=== PATIENT | female | born 1950 | race Caucasian/White ===

== ENCOUNTER 2019-07-17 12:01 | Inpatient (IN) | payer MEDICARE, OTHER ==
[~2019-07-17] VITALS: Ht 162.6 cm; Wt 93.4 kg
[~2019-07-17 12:01] MED LIST: ARMOUR THYROID15 M1 PO; ARMOUR THYROID60 M1 PO; ATIVAN0.5 MG PO; AUGMENTIN 875875 MG PO; CARAFATE 1 GM TA1 G1 PO; CYMBALTA60 MG PO; DEMEROL50 MG PO; DILAUDID 2 MG TA2 MG PO; DILAUDID8 MG; FENTANYL PA50 MCG/HR TRANSDERM; HYDROCODON-ACE1 EAC7 PO; HYDROCODONE-AP1 EAC6 PO; LIDOCAINE-PRILO30 GM TP; LINZESS290 MCG; LISINOPRIL10 MG PO; MIRALAX255 GM PO; NEURONTIN600 MG PO; OMEPRAZOLE40 MG PO; ONDANSETRON HCL4 M2 PO; OPANA10 MG PO; PHENERGAN 25 MG25 M1 PO; PHENERGAN12.5 M2 RECTAL; PRILOSEC 20 MG20 MG PO; PROAIR HFA8.5 GM INH; PROTONIX40 M1; REGLAN 10 MG TA10 MG PO; SEROQUEL 50 MG50 MG PO; TRAMADOL 50 MG50 MG PO; ZOFRAN ODT4 MG PO
[2019-07-17] MEDS ORDERED: SYNTHROID75 MCG PO (12:09)
[2019-07-17 12:34] LABS: ABSOLUTE BASOPHILS 0.1 thou/uL (0.0-0.2); ABSOLUTE EOSINOPHILS 0.1 thou/uL (0.0-0.7); ABSOLUTE LYMPHOCYTES 1.5 thou/uL (0.8-5.3); ABSOLUTE NEUTROPHILS 11.1 thou/uL (1.6-8.1); EOSINOPHILS 0.7 %; HEMATOCRIT 39.6 % (37.0-47.0); MCH 28.8 pg (26.0-34.0); MCHC 32.8 g/dL (28.0-37.0); MCV 87.7 fL (80.0-100.0); MONOCYTES 7.5 %; MPV 7.1 fl. (7.2-11.1); NUCLEATED RBCS 0 /100WBC; PLATELET COUNT* 368 thou/uL (150-400); POLYS 79.8 %; RBC 4.52 mil/uL (4.20-5.00); RDW-CV 12.3 % (10.5-14.5); WBC 13.9 thou/uL (4.0-11.0)
[2019-07-17 12:41] LABS: ANION GAP 8 mmol/L (7-16); BUN 10 mg/dL (7-18); CALCIUM 8.8 mg/dL (8.5-10.1); CHLORIDE 100 mmol/L (98-107); CO2 27 mmol/L (21-32); CREATININE 0.9 mg/dL (0.6-1.3); GLUCOSE 130 mg/dL (70-99); SODIUM 135 mmol/L (136-145)
[2019-07-17 12:42] LABS: APTT 25.9 Seconds (25.0-31.3); PROTIME 9.8 Seconds (9.20-11.50)
[2019-07-17 12:50] LABS: ALKALINE PHOSPHATASE 148 U/L (46-116); SGOT 15 U/L (15-37); SGPT 12 U/L (30-65); TOTAL BILIRUBIN 0.3 mg/dL (<0.1-1.0); TOTAL PROTEIN 6.9 g/dL (6.4-8.2); TROPONIN-I LEVEL <0.06 ng/mL (<0.06)
[2019-07-17 13:11] LABS: URINE BILIRUBIN NEGATIVE (Negative); URINE BLOOD NEGATIVE (Negative); URINE CLARITY CLEAR; URINE COLOR YELLOW; URINE GLUCOSE-RANDOM NEGATIVE (Negative); URINE KETONES NEGATIVE (Negative); URINE LEUKOCYTES-REFLEX NEGATIVE (Negative); URINE NITRITE-REFLEX NEGATIVE (Negative); URINE PROTEIN NEGATIVE (Negative); URINE UROBILINOGEN 0.2 E.U./dl (0.2-1.0)
[2019-07-17 15:42] VITALS: BP 159/72
--- NOTE | 2019-07-17 15:43 | NUR ---
SEE CONCIOUS SEDATION SHEET FOR PROCEDURE AND POST PROCEDURE VITAL SIGNS.
[2019-07-17 17:19] VITALS: BP 142/67
--- NOTE | 2019-07-17 18:55 | NUR ---
PATIENT ARRIVED TO UNIT AT 1530. ADMISSION HISTORY AND ASSESSMENT COMPLETED AND CHARTED. MOST INFORMATION GAINED FROM PATIENTS , TAMMY. PATIENT IS ALERT AND ORIENTED BY CONFUSED AND FORGETFUL. COMMUNICATION WITH PATIENT IS DIFFICULT PATIENT IS HAVING A HARD TIME FORMING WORDS AND SENTENCES WHEN ASKING FOR THINGS. PATIENTS STATES THAT THIS BEHAVIOR BEGAN IN THE LAST 3 WEEKS TO MONTH AND HE HAS BEEN CONCERNED ABOUT IT. DR LEDEZMA PAGED AND INFORMED, ORDERED A HEAD CT AND CONSULT WITH NEUROLOGY. RIGHT LOWER LEG REDUCED IN THE ED, CASTING AND BULKY DRESSING APPLIED. RIGHT LEG ELEVATED ON PILLOWS THAT PATIENT KEEPS TAKING OUT AND THEN ASKING FOR THEM TO BE PLACED BACK UNDER HER LEG. FLUIDS INFUSED ORDERED. COMPLAINTS OF PAIN MANAGED WITH ORAL AND IV MEDICATIONS. FALL PRECAUTIONS IN PLACE. CALL LIGHT WITHIN REACH. HOURLY ROUNDS COMPLETED. WILL CONTINUE TO MONITOR.
[2019-07-17 21:00] VITALS: BP 133/56
[2019-07-18] VITALS: BP 144/59
[2019-07-18 04:15] VITALS: BP 155/72
--- NOTE | 2019-07-18 06:37 | NUR ---
PATIENT HAS SLEPT WELL THROUGHOUT MOST OF THE NIGHT. VSS ON 3L 02 VIA NASAL CANNULA, ALTHOUGH PULSE HAS BEEN TACHY. PATIENT DOES FREQUENTLY REMOVE NASAL CANNULA AND 02 SATS DECREASE AND PATIENT PLACE BACK ON OXYGEN. SPLINT TO RIGHT LOWER EXTREMITY IS IN PLACE AND EXTREMITY ELEVATED. BAUTISTA TO DEPENDENT DRAINAGE WITH YELLOW URINE OUTPUT. IV IN RIGHT HAND- NS @ 80ML/HR. PATIENT HAS BEEN FORGETFUL AND CONFUSED. FALL PRECAUTIONS IN PLACE AND HOURLY ROUNDS MADE. WILL CONTINUE WITH PLAN OF CARE AND NURSING TO MONITOR
[2019-07-18 07:40] VITALS: BP 140/72
[2019-07-18 08:51] LABS: HEMOGLOBIN 11.3 gm/dL (12.0-15.0); MCHC 32.4 g/dL (28.0-37.0); NUCLEATED RBCS 0 /100WBC; RBC 3.95 mil/uL (4.20-5.00)
[2019-07-18 08:53] LABS: ABSOLUTE BASOPHILS 0.1 thou/uL (0.0-0.2); ABSOLUTE LYMPHOCYTES 1.5 thou/uL (0.8-5.3); ABSOLUTE MONOCYTES 1.1 thou/uL (0.0-1.2); ABSOLUTE NEUTROPHILS 8.5 thou/uL (1.6-8.1); BASOPHILS 0.9 %; EOSINOPHILS 0.3 %; HEMATOCRIT 34.9 % (37.0-47.0); LYMPHOCYTES 13.1 %; MCH 28.6 pg (26.0-34.0); MCV 88.3 fL (80.0-100.0); MPV 6.8 fl. (7.2-11.1); PLATELET COUNT* 322 thou/uL (150-400); POLYS 75.7 %; RDW-CV 12.6 % (10.5-14.5); WBC 11.2 thou/uL (4.0-11.0)
[2019-07-18 09:03] LABS: ALBUMIN 2.7 g/dL (3.4-5.0); CALCIUM 8.5 mg/dL (8.5-10.1); CREATININE 0.8 mg/dL (0.6-1.3); POTASSIUM 4.3 mmol/L (3.5-5.1); TOTAL BILIRUBIN 0.8 mg/dL (<0.1-1.0); TOTAL PROTEIN 6.2 g/dL (6.4-8.2)
--- NOTE | 2019-07-18 15:07 | NUR ---
SPOKE WITH PT.BEFORE LUNCH. SHE WAS ORIENTED TO PERSON AND PLACE. SHE SAID SHE LIVES WITH HER AND SOME ADULT GRANDCHILDREN. SHE SAID THEY WOULD HELP HER AT HOME. AWAITING P.T. NOTES. DISCUSSED WITH HER THAT SHE IS NON WEIGHT BEARING ON RIGHT LEG. IF SHE CANNOT DO THIS, SHE WILL NEED TO GO TO A LONGTERM FACILITY. SHE JUST KEPT TALKING ABOUT HER GRANDKIDS. CM CALLED DAUGHTER AND DPOA,JUAN MEIER. SHE SAID HER MOM NEVER LEAVES THE HOUSE. HER DAD DOES ALL THE BRANDING MACHINE OPERATOR. SHE SAID HER MOM NEVER HAS BEEN VERY ACTIVE BUT SHE WILL USUALLY GET UP IN THE MORNING AND THEN GO SIT IN THE LIVING ROOM. SHE DOES NOT USE ANY DME. SHE WILL HOLD ON TO THE CAREY/FURNITURE. NO HOME O2. SHE IS AWARE MOM WILL NEED SURGERY IN 7-10 DAYS . SHE WOULD LIKE A REFERRAL MADE TO [facility]. CM WILL MAKE REFERRAL AFTER THERAPY NOTE IN.
[2019-07-18 16:00] VITALS: BP 143/70
--- NOTE | 2019-07-18 16:15 | EKG ---
[place] [address] ELECTROCARDIOGRAM REPORT Name: YUNIRE SONI Room: [address] ADM IN M.R.#: [id number] Admission: 07/17/19 Attend Phys: Milka Rojas Discharge: Date of : 52 Report #: [id number] THIS REPORT FOR: //name// [facility] ED Test Date: 2019-07-17 Test Time: 12:27:44 Pat Name: YUNIER SONI Department: Room: [facility] Gender: F Mailroom Coordinator: JEREMÍAS : 1950 Requested By: Vinnie Singh Order Number: [id number] MD: Harshil Saunders Measurements Intervals [place] Rate: 117 P: 71 KS: 160 QRS: 63 QRSD: 81 T: 62 QT: 325 QTc: 454 Interpretive Statements Sinus tachycardia Compared to ECG 03/09/2016 23:18:13 Sinus rate has increased Electronically Signed On 07-18-2019 16:15:11 CDT by Harshil Saunders [email or web address] <ELECTRONICALLY SIGNED> By: Harshil Saunders MD, [facility] 07/18/19 1615 1227 1227 Harshil Saunders MD, FAC /EPI
--- NOTE | 2019-07-18 17:07 | NUR ---
PT REMAINED ALERT AND ORIENTED. PT RESTING IN BED. PAIN MEDS GIVEN ORDERED. ICE PACK TO LEG AND ABD. FALL RISK PRECAUTIONS IN PLACE. HOURLY ROUNDING COMPLETED. WILL CONTINUE TO MONITOR.
[2019-07-18 17:53] LABS: AMP/METHAMP Negative (Negative); BARBITURATES Negative (Negative); BENZODIAZEPINES Negative (Negative); COCAINE Negative (Negative); METHADONE Negative (Negative); OPIATES Negative (Negative); PCP Negative (Negative); THC Negative (Negative)
[2019-07-18 22:10] VITALS: BP 116/54
--- NOTE | 2019-07-19 06:44 | NUR ---
PATIENT HAS RESTED WELL THROUGHOUT THE NIGHT. VSS ON 3L 02 VIA NASAL CANNULA. MEDICATIONS GIVEN ORDERED. PATIENT REMAINS NWB ON RIGHT LOWER EXTREMITY. SPLINT TO RIGHT FOOT IS IN PLACE AND ELEVATED. IV IN RIGHT HAND-SL. FALL PRECAUTIONS IN PLACE AND HOURLY ROUNDS MADE. WILL CONTINUE WITH PLAN OF CARE AND NURSING TO MONITOR.
[2019-07-19 07:10] VITALS: BP 149/69
--- NOTE | 2019-07-19 10:00 | NUR ---
SNF REFERRAL FAXED TO [facility].
--- NOTE | 2019-07-19 13:55 | NUR ---
HOLLY/[facility]RIAN CAME TO VISIT WITH PT. SHE SAID THEY WILL BE ABLE TO ACCEPT HER TO A SKILLED BED ON WEDNESDAY. CM NOTIFIED DAUGHTER ON PHONE.
--- NOTE | 2019-07-19 14:14 | 2DMMODE ---
[place] [address] 2 D/M-MODE ECHOCARDIOGRAM Name: GILLTATIANAYUNIER Room: [facility]- ADM IN .R.#: [id number] Admission: 07/17/19 Attend Phys: Zeus Vicente Discharge: Date of : 52 Date of Service: 07/19/19 1413 Report #: [id number] THIS REPORT FOR: //name// APPROVED REPORT Study performed: 07/19/2019 11:55:43 EXAM: Comprehensive 2D, Doppler, and color-flow Echocardiogram Patient Location: In-Patient Room #: [facility] Status: routine BSA: 1.98 HR: 94 bpm BP: 149/69 mmHg Rhythm: NSR Other Information Study Quality: Good Indications Congestive Heart Failure 2D Dimensions IVSd: 8.50 (7-11mm) LVOT Diam: 20.64 (18-24mm) LVDd: 43.15 mm PWd: 9.50 (7-11mm) LVDs: 32.82 (25-40mm) Aortic Root: 29.95 mm Volumes Left Atrial Volume (Systole) LA ESV Index: 22.80 mL/m2 Aortic Valve AoV Peak Giorgi.: 1.72 m/s AO Peak Gr.: 11.84 mmHg LVOT Max P.51 mmHg AO Mean Gr.: 6.36 mmHg LVOT Mean P.41 mmHg LVOT Max V: 0.94 m/s AO V2 VTI: 29.91 cm LVOT Mean V: 0.54 m/s JAMMIE (VTI): 1.73 cm2 LVOT V1 VTI: 15.45 cm Mitral Valve E/A Ratio: 0.74 MV Decel. Time: 184.40 ms MV E Max Giorgi.: 0.79 m/[place] [address] 2 D/M-MODE ECHOCARDIOGRAM Name: YUNIER SONI Room: [address] IN .R.#: [id number] Admission: 07/17/19 Attend Phys: Zeus Vicente Discharge: Date of : 52 Date of Service: 07/19/19 1413 Report #: [id number] MV PHT: 53.48 ms MVA (PHT): 4.11 cm2 TDI E/Lateral E': 7.18 E/Medial E': 7.18 Medial E' Giorgi.: 0.11 m/s Lateral E' Giorgi.: 0.11 m/s Pulmonary Valve PV Peak Giorgi.: 1.14 m/s PV Peak Gr.: 5.20 mmHg Left Ventricle The left ventricle is normal size. There is inferobasilar hypokinesis. There is normal left ventricular wall thickness. Left ventricular systolic function is mildly decreased. LVEF is 45-50%. Grade I - abnormal relaxation pattern. Right Ventricle The right ventricle is normal size. The right ventricular systolic function is normal. Atria The left atrium size is normal. The right atrium size is normal. Aortic Valve Mild aortic valve sclerosis. No aortic regurgitation is present. There is no aortic valvular stenosis. Mitral Valve The mitral valve is normal in structure. Trace mitral regurgitation. No evidence of mitral valve stenosis. Tricuspid Valve The tricuspid valve is normal in structure. Trace tricuspid regurgitation. Unable to assess PA pressure. Pulmonic Valve The pulmonary valve is normal in structure. There is no pulmonic valvular regurgitation. Great Vessels The aortic root is normal in size. IVC is normal in size and collapses >50% with inspiration[place] [address] 2 D/M-MODE ECHOCARDIOGRAM Name: YUNIER SONI Room: [address] IN [facility].#: [id number] Admission: 07/17/19 Attend Phys: Zeus Vicente Discharge: Date of : 52 Date of Service: 07/19/19 1413 Report #: [id number] There is no pericardial effusion. <Conclusion> The left ventricle is normal size. There is normal left ventricular wall thickness. Left ventricular systolic function is mildly decreased. LVEF is 45-50%. Grade I - abnormal relaxation pattern. The right ventricle is normal size. The left atrium size is normal. Mild aortic valve sclerosis. No aortic regurgitation is present. There is no aortic valvular stenosis. The mitral valve is normal in structure. The tricuspid valve is normal in structure. IVC is normal in size and collapses >50% with inspiration. There is no pericardial effusion. There is inferobasilar hypokinesis. <ELECTRONICALLY SIGNED> By: Harshil Saunders MD, FACC 07/19/19 1413 141 1413 Harshil Saunders MD, FACC /INF
[2019-07-19 16:00] VITALS: BP 143/76
--- NOTE | 2019-07-19 18:25 | NUR ---
PT REMAINED ALERT AND ORIENTED, FORGETFUL. PT ON 3 LITERS O2. PT C/O PAIN, MEDS GIVEN ORDERED. STOOL SOFTENER ORDERED. FALL RISK PRECAUTIONS IN PLACE. HOURLY ROUNDING COMPLETED. WILL CONTINUE TO MONITOR.
[2019-07-20] VITALS: BP 129/55
--- NOTE | 2019-07-20 05:47 | NUR ---
PT SLEPT ON AND OFF OVERNIGHT. CO RLQ ABD PAIN AND R LEG PAIN AT TIMES OVERNIGHT, PO PAIN MEDS GIVEN NEEDED WITH GOOD RESULT. DANIEL WRAP SPLINT INTACT TO RLE, TOES PINK AND WARM. O2 2L NC. BAUTISTA DRAINING YELLOW URINE. RLE ELEVATED ON PILLOW. PT ASSISTED TO TURN AND REPOSITION Q2 HOURS AND PRN OVERNIGHT FOR SKIN CARE AND COMFORT. PT DISCONTINUE IV OVERNIGHT, NO IV ACCESS RESTORED PT IS ON PO MEDS AND ANTICIPATING DISCHARGE TO FACILITY TODAY. PT AO, FORGETFUL, SLOW TO SPEAK AND TROUBLE WITH WORD FINDING AT TIMES. NEURO AND GI CONSULTS HAVE SEEN PT AND RECOMMEND OUTPT WORKUP PER NOTES. NWB TO RLE. CALL LITE IN EASY REACH, BED ALARM ON FOR SAFETY.
[2019-07-20 08:30] VITALS: BP 152/78
--- NOTE | 2019-07-20 13:34 | NUR ---
PT.HAS DISCHARGE ORDERS FOR TODAY. NOTIFIED [facility]. SHE WILL SET UP [facility]SP[facility] FOR 15-0. NOTIFIED JUAN/PT.'S DAUGHTER OF DISCHARGE TIME. SHE SAID SHE WILL LET HER DAD KNOW OF DISCHARGE. ALSO TOLD HER I LEFT INFORMATION WITH PT.ON PCP PRACTICES THAT [facility], SO PT.CAN GET A NEW PCP SET UP. WILL SEND WITH HER BELONGINGS TO [facility]. CHART COPIED TO GO [facility] PT. BALDEMAR HAMMOND WILL CALL REPORT. PT.INFORMED OF TRANSPORT TIME.
[2019-07-20 15:22] VITALS: BP 129/55
[2019-07-20] MEDS ORDERED: ASPIRIN325 PO (15:35)
[2019-07-20] MEDS ORDERED: ROXICODONE5 M2 PO (15:37)
[2019-07-20 16:00] VITALS: BP 107/25
--- NOTE | 2019-07-20 16:00 | NUR ---
DISCHARGE TO [facility]. PATIENT ASST W/ DRSG. BELONGINGS GATHERED AND GIVEN TO PRECISION INSTRUMENT AND TOOL MAKER. ASST TO WC USING FWW AND GAIT BELT. PATIENT NWB TO RLE. DRSG TO RLE CDI. PATIENT C/O RT GROIN PAIN, ICE TO AREA. O2 RA. PAPERWORK WITH PRECISION INSTRUMENT AND TOOL MAKER AT TIME OF DISCHARGE. REPORT CALLED TO [facility]. NO ACUTE DISTRESS NOTED. PATIENT ALERT AND ORIENTED.
--- NOTE | 2019-07-22 16:06 | CON ---
[address] [address] CONSULTATION Name: YUNIER SONI Room: [address] IN M.R.#: [id number] Admission: 07/17/19 Attend Phys: Milka Rojas Discharge: 07/20/19 Date of : 52 Report #: [id number] THIS REPORT FOR: //name// CC: Woo Vicente DICTATED BY: Sandy Ruiz [facility] DATE OF SERVICE: 07/19/2019 Please note at the time of this dictation, the patient was seen and physically examined by myself. REASON FOR CONSULTATION: Dilated CBD. HISTORY OF PRESENT ILLNESS: This is a 69-year-old female who presented to the Emergency Room with right foot and ankle pain on the day of admission after she tripped off the edge of her stairs and injured her right foot. She was noted to have a right ankle fracture at that time. During her hospital stay, she was complaining of a little bit of left flank pain and so a CT was ordered for that reason. It was noted on the CT that she had the common bile duct slightly dilated and was slightly increased in size from back in 2015. Otherwise, the CT scan was essentially negative for any other GI abnormalities. Back in 2015, the patient had an extensive workup regarding her CBD dilatation including EGD, colonoscopy, EUS, ERCP, gastric emptying test and all were essentially negative, and when she was last seen in February by Dr. Pedraza he said that she probably had more functional bowel issues. The patient did have a cholecystectomy back in 2007 that was related to acalculous cholecystitis and not choledocholithiasis. ALLERGIES: STEROIDS, CODEINE, ACETAMINOPHEN AND REMERON. MEDICATIONS: From home is Synthroid. PAST MEDICAL HISTORY: Hypothyroid, history of an ulcer, history of pneumonia. PAST SURGICAL HISTORY: Back surgery, thyroid surgery, hysterectomy, appendectomy, tonsillectomy, cholecystectomy. FAMILY HISTORY: Negative for any GI or female cancers. SOCIAL HISTORY: The patient smokes 3 packs per day and has for 50+ years. Denies any alcohol or illegal drug use. REVIEW OF SYSTEMS: Twelve-point review of systems is essentially negative except what is [place] [address] CONSULTATION Name: YUNIER SONI Room: [address] IN [facility].#: [id number] Admission: 07/17/19 Attend Phys: Milka Rojas Discharge: 07/20/19 Date of : 52 Report #: [id number] PHYSICAL EXAMINATION: VITAL SIGNS: Temperature 36.8, pulse 114, respirations 18, blood pressure 149/69. HEART: Regular rate and rhythm and tachycardic. LUNGS: Diminished, but clear. ABDOMEN: Soft, positive bowel sounds in all 4 quadrants with no masses or tenderness noted. She is complaining of some right groin pain and has an ice pack to that. EXTREMITIES: Right ankle pain and wrapped. LABORATORY DATA: Hemoglobin is 11.3, white count is 11.2, platelets 322. GFR is 71. LFTs are all completely normal. Again, CT showed a slightly dilated common bile duct, but no other abnormalities, that has been persistent since 2016. IMPRESSION: 1. Dilated common bile duct, which has been persistent since 2016. 2. Fractured right ankle. 3. Pain medications. Routine secondary to ankle fracture. PLAN: 1. No further workup regarding her dilated CBD. She had a complete and extensive workup in 2016 for this and this was all negative. 2. We will add senna b.i.d. to prevent constipation secondary to the pain medicines. 3. We will sign off and be available as needed during this hospitalization. Thank you for allowing us to participate in this patient's care. Please do not hesitate to call with any questions in regard to this consult. <ELECTRONICALLY SIGNED> By: Efraín Benz DO 07/22/19 1606 1109 1930Efraín Benz DO /nt
== END 2019-07-20 16:00 | DRG 542 ==
LOC: M.ERS 12:01 → M.ORTHSURG 13:34 → M.TBA-ER 13:34 → M.ORTHSURG 15:30
PROVIDERS: Family Medicine; Internal Medicine; ADMIT Internal Medicine
PROC: 2W3SX1Z Immobilization of Right Foot using Splint (ICD-10-PCS; principal; 2019-07-17)
PROC: 0QSJXZZ Reposition Right Fibula, External Approach (ICD-10-PCS; principal; 2019-07-17)
DX: M80.071A Age-related osteoporosis with current pathological fracture, right ankle and foot, initial encounter for fracture (principal); G93.41 Metabolic encephalopathy; J98.11 Atelectasis; E44.1 Mild protein-calorie malnutrition; S82.851A Displaced trimalleolar fracture of right lower leg, initial encounter for closed fracture; E03.9 Hypothyroidism, unspecified; F17.210 Nicotine dependence, cigarettes, uncomplicated; R00.0 Tachycardia, unspecified; R09.02 Hypoxemia; Z90.49 Acquired absence of other specified parts of digestive tract; Z90.710 Acquired absence of both cervix and uterus; Z88.6 Allergy status to analgesic agent; Z88.8 Allergy status to other drugs, medicaments and biological substances; Z68.35 Body mass index [BMI] 35.0-35.9, adult; W18.39XA Other fall on same level, initial encounter; Y93.89 Activity, other specified; Y92.89 Other specified places as the place of occurrence of the external cause; Y99.8 Other external cause status

== ENCOUNTER 2019-07-26 10:56 | Inpatient (IN) | payer MEDICARE, OTHER ==
[~2019-07-26] VITALS: Ht 160 cm; Wt 90.7 kg
--- NOTE | ~2019-07-26 | OP ---
[facility] [address] [place] [address] OPERATIVE REPORT Name: YUNIER SONI Room: [address] IN M.R.#: [id number] Admission: 07/26/19 Attend Phys: Milka Rojas Discharge: Date of : 52 Report #: [id number] THIS REPORT FOR: //name// CC: Woo Vicente DATE OF SERVICE: 07/26/2019 PREOPERATIVE DIAGNOSIS: Right displaced trimalleolar ankle fracture. POSTOPERATIVE DIAGNOSIS: Right displaced trimalleolar ankle fracture. SURGEON: Robert Glasgow DO BIOLOGY LABORATORY ASSISTANT: Bernard Gordon DO OPERATION PERFORMED: Right ankle closed reduction with external fixation. ANESTHESIA: General. ESTIMATED BLOOD LOSS: 10 mL. SPECIMENS REMOVED: None. COMPLICATIONS: None. DRAINS: None. COMMENTS: Discharged from PACU to Med/Surg floor. INDICATIONS FOR PROCEDURE: The patient is a pleasant 69-year-old female who was seen in the outpatient orthopedic clinic after she fell and sustained a right trimalleolar ankle fracture. She was noted to have significant swelling and ecchymosis and pressure on the right skin. A closed reduction attempt was reperformed in the outpatient office setting, which the patient tolerated well. I did release some of the tenting of the skin and then some of the amount of displacement; however, she did continue to be displaced with noticeable talar tilt. It was recommended that she undergo right ankle closed reduction with external fixation to allow for soft tissue swelling to resolve prior to needing external fixation on delayed fashion. Therefore, the risks, benefits, treatment options, alternatives, and indications were discussed with the patient the risks include but not limited to damage to surrounding neurovascular structures, continued pain, continued bleeding, wound infection, pin site tract infection, need for repeat surgery, need for washout and need for prolonged antibiotics and complications there of acute renal failure, [place]ostrid[place] [address] OPERATIVE REPORT Name: YUNIER SONI Room: [address] IN [facility].#: [id number] Admission: 07/26/19 Attend Phys: Milka Rojas Discharge: Date of : 52 Report #: [id number] well as iatrogenic fracture. The patient assumed the risks and wished to proceed with surgery. DESCRIPTION OF PROCEDURE: The patient was seen in the preoperative holding area where consent was obtained and signed, and the right lower extremity was then marked and initialed. The patient was transferred back to the operative suite and placed supine on the operating room table. She was given the benefit of general endotracheal anesthetic and then a well-padded tourniquet was applied at the right upper thigh. All bony prominences were then well padded and the patient was secured to the table with a belt and restraint appropriately. The right lower extremity was elevated on a foam ramp. Right lower extremity was then sterilely prepped with a Hibiclens scrubbed for 10 minutes followed by alcohol rinse and ChloraPrep x 2. Surgery began with identification of appropriate starting point above where any ankle hardware would be placed for definitive ORIF fixation. Appropriate starting point was identified on the C-arm images and then, a 15-blade scalpel was used to incise skin and subcutaneous tissues to the level of bone. Next, the appropriate drill guide was inserted. We marked out both distal and proximal holes. When the proximal hole was identified, a donis was made with a guide and the skin was incised with a 15 blade scalpel through skin and subcutaneous tissues. A proximal third of the first distal tibial pin was placed just medial to the tibial crest in appropriate angled trajectory. Visualizing C-arm on AP and lateral images to be in appropriate position. Next, attention was directed to the proximal tibial pin and this was placed just medial to the tibial crest in appropriate trajectory just medial to the tibial crest and visualized on C-arm on AP and lateral images. Next, attention was directed to the distal aspect of the ankle and the calcaneus pin was identified in appropriate starting position on AP and lateral images of the C-arm. Therefore, a skin knife was used to incise skin and subcutaneous tissues on the medial aspect and then hemostat was used in a spreading fashion to spread down to the level of the bone until bone was free of any soft tissue. Next, the calcaneal pin was then inserted in a medial to lateral direction with appropriate trajectory that was confirmed on AP and lateral images of the C-arm. This was driven to an appropriate length and position. Next, external fixation bars and appropriate clips were placed onto the bone pins and secured into position with enough room for closed reduction maneuvers being performed. Closed reduction maneuver was then subsequently performed with traction and varus angulation and supination. This allowed for appropriate reduction of the fibula as well as maintenance of the talus within the ankle mortise on AP and lateral images visualized under C-arm. The appropriate bars were then locked into position. They were then confirmed to be in an appropriate reduction on both AP and lateral images of C-arm. Next, the kickstand was then attached to the calcaneal pin and secured into position. Wounds were then thoroughly irrigated and then dressings of Xeroform, 4 x 4s, Kerlix and silk tape were applied. Anesthesia was reversed. The patient was transferred back to PACU in normal stable condition. Then, do the post-recovery evaluation, the patient was seen following completion of the surgery. [facility] [address] [place] [address] OPERATIVE REPORT Name: YUNIER SONI Room: [address] IN M.R.#: [id number] Admission: 07/26/19 Attend Phys: Milka Rojas Discharge: Date of : 52 Report #: [id number] Discussion was held with the family about the results of the surgery and they were very pleased with my surgical outcomes. I discussed with them the patient's need to be evaluated overnight as well as need for physical therapy and occupational therapy as well as adequate pain control. Following this, we discussed for the followup appointment with discussion of possible open reduction and internal fixation in potentially 7-10 days with soft tissue guiding or treatment at this point. I stated the patient will be nonweightbearing on the right lower extremity. We then subsequently evaluated the patient in the PACU and she was determined to have maintenance of sensation in the bilateral lower extremities as well as upper extremities and removing them appropriately except for the right lower extremity at the ankle secondary to the external fixation. She had maintenance of sensation in the right lower extremity and continued to have loss of sensation on the dorsal aspect, which was present prior to surgery. The patient was able to wiggle her toes. I discussed all the above-mentioned orders and follow up with the patient. She thanked me for my time. I personally gave her and her family my cell phone number to call at any time. All concerning signs were discussed with the patient. Dr. Glasgow was present for all critical aspects of the case. By: [id number] 1942Jathor Glasgow, /nt
[~2019-07-26 10:56] MED LIST changes: +ASPIRIN325 PO; +ROXICODONE5 M2 PO; +SYNTHROID75 MCG PO
[2019-07-26 13:52] VITALS: BP 152/76
[2019-07-26 18:10] VITALS: BP 142/58
--- NOTE | 2019-07-26 18:47 | NUR ---
PATIENT ARRIVED TO UNIT AT 1700. ALERT AND AWAKE. VSS ON 3 LITERS. NO COMPLAINTS OF PAIN, NAUSEA, OR SOA. PATIENT IS NOT SPEAKING BUT USING A PEN AND PAPER TO COMMUNICATE. FLUIDS INFUSED ORDERED. PATIENT ORDERS SAY UP WITH ASSIST. NON WEIGHT BEARING TO RIGHT LOWER EXTREMITY. EX FIX IN PLACE ON LOWER RIGHT EXTREMITY. WEIGHT BEARING TOLERATED ON LEFT LOWER EXTREMITY. ICE PACKS IN PLACE ON RLE. FALL PRECAUTIONS IN PLACE. CALL LIGHT WITHIN REACH. HOURLY ROUNDS COMPLETED. WILL CONTINUE TO MONITOR.
[2019-07-26 20:00] VITALS: BP 101/62
[2019-07-27] VITALS: BP 129/68
[2019-07-27 03:51] LABS: HEMATOCRIT 31.5 % (37.0-47.0); MCH 28.5 pg (26.0-34.0); MCHC 31.9 g/dL (28.0-37.0); MCV 89.4 fL (80.0-100.0); MPV 7.2 fl. (7.2-11.1); NUCLEATED RBCS 0 /100WBC; PLATELET COUNT* 457 thou/uL (150-400); RBC 3.53 mil/uL (4.20-5.00); RDW-CV 13.4 % (10.5-14.5)
[2019-07-27 04:00] VITALS: BP 121/58
[2019-07-27 04:37] LABS: CALCIUM 8.1 mg/dL (8.5-10.1); CREATININE 0.8 mg/dL (0.6-1.3); POTASSIUM 4.7 mmol/L (3.5-5.1)
--- NOTE | 2019-07-27 05:24 | NUR ---
PATIENT SLEPT MOST OF THE NIGHT. IV FLUIDS CONTINUE TO INFUSE ORDERED. PATIENT IS EASY TO UNDERSTAND AT TIMES BUT SOMETIMES IS HARD TO UNDERSTAND. PATIENT WAS GIVEN PAIN MEDICINE TWICE WITH GOOD RELIEF. EXTERNAL FIXATION REMAINS IN PLACE TO RIGHT ANKLE. PATIENT HAS BEEN INCONTINENT OF URINE. WILL CONTINUE TO MONITOR.
[2019-07-27 05:35] LABS: ABSOLUTE LYMPHOCYTES 0.5 thou/uL (0.8-5.3); ABSOLUTE MONOCYTES 0.7 thou/uL (0.0-1.2); ABSOLUTE NEUTROPHILS 10.8 thou/uL (1.6-8.1); ANISOCYTOSIS 1+; HYPOCHROMASIA 1+; PLATELET ESTIMATE INCREASED; POIKILOCYTOSIS 1+
[2019-07-27 07:40] VITALS: BP 136/53
[2019-07-27 15:42] VITALS: BP 153/62
--- NOTE | 2019-07-27 17:16 | NUR ---
ASSUMED CARE OF PATIENT AT APPROX 0730. ALERT AND ORIENTED X2-3. ASSESSMENT COMPLETED AND CHARTED. VSS ON 3 LITERS 02. PATIENT HAVING DIFFICULTY COMMINICATION AT TIMES, PROVIDED PAPER AND PEN TO WRITE ON. PATIENT HAS A LOOSE COUGH BUT LUNG SOUNDS ARE DIMINISHED WITH EXPIRATORY WHEEZES ON THE LEDT SIDE THAT CLEAR WITH COUGH. PAIN MANAGED WITH OXY IR. FLUIDS AND ANTIBIOTICS INFUSED ORDERED. EX FIXATOR ON RIGHT LOWER EXTREMITY IN PLACE, SOME BLOODY DRAINAGE ON DRESSING OVER HEEL FROM PATIENT MOVING EXTREMITY AROUND IN BED. USING BEDPAN FOR VOIDING. NON WEIGHT BEARING STATUS MAINTAINED ON RLE. FALL PRECAUTIONS IN PLACE. CALL LIGHT WITHIN REACH. HOURLY ROUNDS COMPLETED. WILL CONTINUE TO MONITOR.
[2019-07-27 20:49] VITALS: BP 130/85
[2019-07-28 03:35] VITALS: BP 138/59
[2019-07-28 04:35] LABS: ABSOLUTE BASOPHILS 0.1 thou/uL (0.0-0.2); ABSOLUTE EOSINOPHILS 0.5 thou/uL (0.0-0.7); ABSOLUTE LYMPHOCYTES 1.1 thou/uL (0.8-5.3); ABSOLUTE MONOCYTES 0.7 thou/uL (0.0-1.2); ABSOLUTE NEUTROPHILS 4.3 thou/uL (1.6-8.1); BASOPHILS 0.9 %; HEMATOCRIT 31.9 % (37.0-47.0); HEMOGLOBIN 10.3 gm/dL (12.0-15.0); LYMPHOCYTES 16.8 %; MCH 28.5 pg (26.0-34.0); MCHC 32.4 g/dL (28.0-37.0); MONOCYTES 10.5 %; MPV 7.1 fl. (7.2-11.1); NUCLEATED RBCS 0 /100WBC; PLATELET COUNT* 461 thou/uL (150-400); POLYS 63.8 %; RBC 3.62 mil/uL (4.20-5.00); RDW-CV 13.5 % (10.5-14.5); WBC 6.7 thou/uL (4.0-11.0)
[2019-07-28 04:40] LABS: CALCIUM 8.2 mg/dL (8.5-10.1); CREATININE 0.8 mg/dL (0.6-1.3); POTASSIUM 3.8 mmol/L (3.5-5.1)
--- NOTE | 2019-07-28 05:14 | NUR ---
STILL NOT COMMUNICATING WELL BUT HAS BEEN ABLE TO REPORT HER PAIN. SHE DID RECEIVE 10MG OXYCODONE FOR REPORTING 7/10 PAIN IN RIGHT ANKLE/FOOT. SHE WAS ABLE TO SLEEP THROUGH THE NIGHT. STILL HAS BAUTISTA. GAUZE HAS SOME BLOOD LEAKAGE BUT NOT SAUTURATING ENOUGH TO UNWRAP. NO WB ON RLE ACTIVITY TO CHAIR FOR MEALS. COUGHT STILL LOOSE AND LUNG SOUNDS DIMINISHED. PLANS ARE THE D/C TO SNF. WILL CONTINUE TO MONITOR.
--- NOTE | 2019-07-28 11:13 | NUR ---
DASHAWN met with pt and discussed possibility of pt to dc back to SNF at [facility] today. Pt said she did not feel that she was quite ready but explained that even though she wants to dc home, she would agree to return to [facility] SNF. DASHAWN called pt and discussed dc plan and pt said he was in agreement with plan for pt to dc to [facility] SNF (even though pt had expressed he wasn't sure about pt returning to [facility], pt said he okay with [facility] after all). DASHAWN called and spoke with Marycruz in admissions at [facility] and faxed referral info. DC orders/med list to be faxed to [facility] at dc. ph [phone] fax [phone]
--- NOTE | 2019-07-28 15:30 | NUR ---
ASSESSMENT COMPLETE. PT HAS APHASIA, PHYSICIAN AWARE. PT GIVEN PRN PAIN MEDICATIONS NEEDED. PT IS ON 2L PER NC WITH ADEQUATE SATS, VSS. PT DENIES N/V, TOLERATING MEALS. PT INCONT AT TIMES. Q2 TURN. SEE ASSESSMENT AND VITALS FOR OTHER DETAILS. CALL LIGHT WITHIN REACH. WILL CONTINUE PLAN OF CARE
[2019-07-28 16:00] VITALS: BP 132/65
--- NOTE | 2019-07-28 16:40 | NUR ---
PT. AND DAUGHTER,JUAN, WOULD LIKE FOR PT.TO DO A DPOA. GAVE DOCUMENT AND EXPLAINED. PT.IS ALERT AND ORIENTED. SHE COULD NOT NAME PRESIDENT BUT KNEW MONTH,YEAR, SEASON AND WHAT TOMORROW IS. COPY PLACED ON CHART AND COPIES AND ORIGINAL GIVEN TO PT.
[2019-07-28 20:00] VITALS: BP 140/64
[2019-07-29 00:19] VITALS: BP 142/80
[2019-07-29 03:57] VITALS: BP 137/67
[2019-07-29 04:31] LABS: HEMATOCRIT 32.4 % (37.0-47.0); HEMOGLOBIN 10.4 gm/dL (12.0-15.0); MCH 28.3 pg (26.0-34.0); MCV 88.5 fL (80.0-100.0); MPV 7.4 fl. (7.2-11.1); RBC 3.66 mil/uL (4.20-5.00); RDW-CV 13.2 % (10.5-14.5)
[2019-07-29 04:42] LABS: CALCIUM 8.2 mg/dL (8.5-10.1); CREATININE 0.8 mg/dL (0.6-1.3); POTASSIUM 4.3 mmol/L (3.5-5.1)
--- NOTE | 2019-07-29 05:24 | NUR ---
PATIENT SLEPT OFF AND ON DURING THIS SHIFT. PT C/O RT FOOT PAIN AND PAIN MEDICATIONS GIVEN X3. PT ABLE TO SLEEP AFTERWARDS. PT TURNED Q2H PER PROTOCAL. PT WITH SALINE LOCK IN LT HAND. PT IS ON 2LITERS PER NASAL CANNULA. PT IN CONTINENT OF URINE. PT WITH APHASIA BUT ABLE TO MAKE NEEDS KNOWN. FREQUENTLY USED ITEMS AND CALL LIGHT WITHIN REACH. SIDERAILS UPX3 AND BED ALARM ON. WILL CONTINUE TO MONITOR.
[2019-07-29 08:30] VITALS: BP 157/77
--- NOTE | 2019-07-29 10:47 | NUR ---
[facility] is able to accept Pt back over the weekend, if medically stable to dc. Contact Marycruz at [phone], to arrange discharge. Fax number is [phone]. Nurse report number is [phone]
--- NOTE | 2019-07-29 13:16 | NUR ---
Pt discharging to [facility] skilled. Faxed dc orders. Chart copied. Nurse report number is [phone]. Updated Pt's dtr.
[2019-07-29] MEDS ORDERED: ENOXAPARIN40 MG/0.1 SUBQ (14:27)
[2019-07-29] MEDS ORDERED: DOK PLUS TABLE1 EACH PO (14:27)
[2019-07-29] MEDS ORDERED: THERA M PLUS T1 EAC2 PO (14:27)
[2019-07-29] MEDS ORDERED: OXYCODONE HCL 55 MG PO (14:27)
[2019-07-29] MEDS ORDERED: SYNTHROID50 MCG PO (14:27)
[2019-07-29] MEDS ORDERED: ADULT LOW DOSE81 MG PO (14:27)
[2019-07-29] MEDS ORDERED: VITAMIN B-12500 MCG PO (14:27)
[2019-07-29] MEDS ORDERED: PROTONIX40 M1 PO (14:38)
[2019-07-29 16:15] VITALS: BP 157/77
[2019-07-29 18:50] VITALS: BP 157/77
--- NOTE | 2019-07-29 19:06 | NUR ---
PATIENT TRANSPORTED VIA WHEELCHAIR VAN AT 1855. NO SIGNS OF DISTRESS OBSERVED. IV REMOVED. ALL SAFETY MEASURES MAINTAINED. PATIENT TURNING AND REPOSITIONING Q2 THROUGHOUT SHIFT. REPORT CALLED TO FACILITY AT 5637.
== END 2019-07-29 19:23 | DRG 492 ==
LOC: M.TBA 10:56 → M.ORTHSURG 10:56 → M.SUR 14:57 → EDSTATUS 15:09 → M.ORTHSURG 15:11
PROVIDERS: Family Medicine; ADMIT Internal Medicine
PROC: 0QSG35Z Reposition Right Tibia with External Fixation Device, Percutaneous Approach (ICD-10-PCS; principal; 2019-07-26)
DX: S82.851A Displaced trimalleolar fracture of right lower leg, initial encounter for closed fracture (principal); J96.00 Acute respiratory failure, unspecified whether with hypoxia or hypercapnia; R47.01 Aphasia; J98.11 Atelectasis; E03.9 Hypothyroidism, unspecified; G47.33 Obstructive sleep apnea (adult) (pediatric); R10.9 Unspecified abdominal pain; G89.29 Other chronic pain; Z88.6 Allergy status to analgesic agent; Z88.8 Allergy status to other drugs, medicaments and biological substances; Z90.49 Acquired absence of other specified parts of digestive tract; Z90.710 Acquired absence of both cervix and uterus; W18.39XA Other fall on same level, initial encounter; Y93.89 Activity, other specified; Y92.89 Other specified places as the place of occurrence of the external cause; Y99.8 Other external cause status

== ENCOUNTER 2019-08-01 19:17 | Inpatient (IN) | payer MEDICARE, OTHER ==
[~2019-08-01] VITALS: Ht 160 cm; Wt 90.7 kg
[~2019-08-01 19:17] MED LIST changes: +ADULT LOW DOSE81 MG PO; +DOK PLUS TABLE1 EACH PO; +ENOXAPARIN40 MG/0.1 SUBQ; +OXYCODONE HCL 55 MG PO; +PROTONIX40 M1 PO; +SYNTHROID50 MCG PO; +THERA M PLUS T1 EAC2 PO; +VITAMIN B-12500 MCG PO
[2019-08-01 19:20] VITALS: BP 214/97
[2019-08-01] MEDS ORDERED: MIRALAX17 GM PO (19:28)
[2019-08-01] MEDS ORDERED: MILK OF MA2400 MG/11 PO (19:28)
[2019-08-01] MEDS ORDERED: BAZA CR.1 E1 (19:29)
[2019-08-01] MEDS ORDERED: DULCOLAX5 MG PO (19:30)
[2019-08-01 19:41] LABS: URINE BILIRUBIN NEGATIVE (Negative); URINE BLOOD NEGATIVE (Negative); URINE CLARITY CLEAR; URINE COLOR STRAW; URINE GLUCOSE-RANDOM NEGATIVE (Negative); URINE KETONES NEGATIVE (Negative); URINE LEUKOCYTES-REFLEX NEGATIVE (Negative); URINE NITRITE-REFLEX NEGATIVE (Negative); URINE PROTEIN NEGATIVE (Negative); URINE UROBILINOGEN 0.2 E.U./dl (0.2-1.0)
[2019-08-01 19:54] LABS: ABSOLUTE BASOPHILS 0.1 thou/uL (0.0-0.2); ABSOLUTE EOSINOPHILS 0.2 thou/uL (0.0-0.7); ABSOLUTE LYMPHOCYTES 1.5 thou/uL (0.8-5.3); ABSOLUTE MONOCYTES 0.9 thou/uL (0.0-1.2); ABSOLUTE NEUTROPHILS 6.4 thou/uL (1.6-8.1); BASOPHILS 0.7 %; EOSINOPHILS 2.5 %; HEMATOCRIT 35.1 % (37.0-47.0); HEMOGLOBIN 11.5 gm/dL (12.0-15.0); LYMPHOCYTES 16.1 %; MCH 28.4 pg (26.0-34.0); MCHC 32.8 g/dL (28.0-37.0); MCV 86.6 fL (80.0-100.0); MONOCYTES 9.7 %; MPV 7.2 fl. (7.2-11.1); NUCLEATED RBCS 0 /100WBC; PLATELET COUNT* 541 thou/uL (150-400); RBC 4.06 mil/uL (4.20-5.00); RDW-CV 13.8 % (10.5-14.5)
[2019-08-01 19:58] LABS: PROTIME 10.1 Seconds (9.20-11.50)
[2019-08-01 19:59] LABS: ANION GAP 7 mmol/L (7-16); BUN 4 mg/dL (7-18); CALCIUM 8.6 mg/dL (8.5-10.1); CHLORIDE 96 mmol/L (98-107); CO2 31 mmol/L (21-32); CREATININE 0.8 mg/dL (0.6-1.3); GLUCOSE 93 mg/dL (70-99); POTASSIUM 3.5 mmol/L (3.5-5.1); SODIUM 134 mmol/L (136-145)
[2019-08-01 20:09] LABS: ALKALINE PHOSPHATASE 104 U/L (46-116); LIPASE 63 U/L (73-393); NT-PRO BRAIN NAT PEPTIDE 802 pg/mL (<300); SGOT 22 U/L (15-37); SGPT 14 U/L (30-65); TOTAL BILIRUBIN 0.5 mg/dL (<0.1-1.0); TOTAL PROTEIN 6.6 g/dL (6.4-8.2); TROPONIN-I LEVEL <0.06 ng/mL (<0.06)
[2019-08-01 20:32] LABS: BE 3.4 mmol/L (-2 to +3); PCO2 45.4 mmHg (35.0-45.0); PO2 115.7 mmHg (75.0-100.0); pH 7.414 (7.340-7.450)
[2019-08-01 22:42] VITALS: BP 179/79
[2019-08-01 22:45] VITALS: BP 158/98
[2019-08-02] MEDS ORDERED: VITAMIN B-12500 MCG PO (03:05)
[2019-08-02 04:00] VITALS: BP 158/53
--- NOTE | 2019-08-02 05:04 | NUR ---
PT RECIEVED FROM ED IN ROOM 200. SAT MAINTAINED IN 4L NC. SPEECH DIFFICULT TO UNDERSTAND AT TIMES. FOLLOWS COMMANDS PROPERLY. C/O PAIN, MEDICATION GIVEN PER EMAR. HOURLY ROUNDING DONE FOR PT SAFETY.
[2019-08-02 07:00] VITALS: BP 145/52
--- NOTE | 2019-08-02 10:15 | EKG ---
[place] [address] ELECTROCARDIOGRAM REPORT Name: YUNIER SONI Room: [address] ADM IN M.R.#: [id number] Admission: 08/01/19 Attend Phys: Nigel Ocampo, Discharge: Date of : 52 Report #: [id number] THIS REPORT FOR: //name// [facility] ED Test Date: 2019-08-01 Test Time: 19:41:08 Pat Name: YUNIER SONI Department: Room: [facility] Gender: F Filling Hand: ANIBAL : 1950 Requested By: Ainsley Montenegro Order Number: [id number] MD: Woo Silva Measurements Intervals Ralph Rate: 100 P: 86 FL: 141 QRS: 71 QRSD: 85 T: 71 QT: 374 QTc: 483 Interpretive Statements Sinus tachycardia Compared to ECG 07/17/2019 12:27:44 No significant changes Electronically Signed On 08-02-2019 10:15:25 CDT by Woo Silva [email or web address] <ELECTRONICALLY SIGNED> By: Woo Silva MD, [facility] 08/02/19 1015 40 40 Woo Silva MD, FACC /EPI
[2019-08-02 12:00] VITALS: BP 150/58
--- NOTE | 2019-08-02 13:41 | NUR ---
Pt was discharged on 07/29 to [facility], plans to return at dc. CM spoke with Marycruz at [facility], they are able to accept Pt back. Pt states that she is sleepy today and asked that CM contact her dtr. CM left for Pt's dtr, awaiting call back.
[2019-08-02 16:00] VITALS: BP 148/62
[2019-08-02 20:20] VITALS: BP 135/60
[2019-08-03 00:30] VITALS: BP 141/54
[2019-08-03 04:30] VITALS: BP 138/70
--- NOTE | 2019-08-03 04:57 | NUR ---
ASSUMED CARE OF PT AT 1900. PT IS ALERT AND ORIENTED. VSS. PERRLA. PT REPORTS ONGOING PAIN IN HER LEG. PT GETTING OXYCODONE FOR PAIN. PT IS IN SINUS RYTHM ON THE TELEMETRY. PT IS RESTING COMFORTABLY IN BED. RESPIRATIONS ARE EVEN AND NONLABORED. WILL CONTINUE TO MONITOR PT.
[2019-08-03 11:30] VITALS: BP 92/53
[2019-08-03 16:00] VITALS: BP 153/62
[2019-08-03] MEDS ORDERED: ARMOUR THYROID180 M1 PO (16:49)
[2019-08-03 21:37] VITALS: BP 152/66
--- NOTE | 2019-08-04 02:53 | NUR ---
PATIENT ARRIVED IN TRANSFER AT 2137 BY BED IN STABLE CONDITION. PATIENT UPDATED ON PLAN OF CARE INCLUDING PAIN MANAGEMENT. VITAL SIGNS STABLE ON ARRIVAL. CONTINUE TO MONITOR.
--- NOTE | 2019-08-04 05:08 | NUR ---
PATIENT ALERT AND ORIENTED X 3-4. SOME FORGETFULNESS. WOULD NOT USE BEDPAN....VOIDING IN A CUP AND THEN REQUIRING TO BE CHANGED. HIGH PAIN LEVELS OF ABDOMEN REQUIRING BOTH IV AND ORAL INTERVENTION. O2 ON AT 1L/MIN WITH VITAL SIGNS STABLE. RLE ELEVATED ON PILLOW WITH EXTERNAL FIXATOR PRESENT. DRESSINGS AROUND SITES DRY. CONTINUE TO MONITOR.
[2019-08-04 07:45] VITALS: BP 172/83
--- NOTE | 2019-08-04 16:51 | NUR ---
PT REMAINED ALERT AND ORIENTED. PT C/O PAIN, MEDS GIVEN ORDERED. PT RESTING IN BED. FALL RISK PRECAUTIONS IN PLACE. HOURLY ROUNDING COMPLETED. WILL CONTINUE TO MONITOR.
[2019-08-04 20:43] VITALS: BP 178/69
[2019-08-05 04:04] LABS: HEMATOCRIT 33.6 % (37.0-47.0); HEMOGLOBIN 10.9 gm/dL (12.0-15.0); MCH 28.5 pg (26.0-34.0); MCHC 32.3 g/dL (28.0-37.0); MCV 88.2 fL (80.0-100.0); MPV 7.4 fl. (7.2-11.1); RBC 3.81 mil/uL (4.20-5.00); RDW-CV 14.2 % (10.5-14.5)
[2019-08-05 04:24] LABS: ALBUMIN 2.7 g/dL (3.4-5.0); CREATININE 0.6 mg/dL (0.6-1.3); POTASSIUM 3.4 mmol/L (3.5-5.1); TOTAL BILIRUBIN 0.4 mg/dL (<0.1-1.0); TOTAL PROTEIN 6.2 g/dL (6.4-8.2)
--- NOTE | 2019-08-05 04:53 | NUR ---
JOCELINE WAS ABLE TO REST THROUGH THE SHIFT. SHE DID REQUEST OXY IR 5MG THEN ANOTHER 5MG AT 0100 FOR PAIN IN HER RIGHT FOOT AND STOMACH. RAN NS AT 100 MLS ALL NIGHT. SHE IS TO BE SEEN BY SPEECH AND NEURO FOR COGNITION EVALUATION. SHE IS STILL NON WB TO RLE. STILL ON 1 L OXYGEN NC. WILL CONTINUE TO MONITOR.
[2019-08-05 08:15] VITALS: BP 159/103
--- NOTE | 2019-08-05 17:50 | NUR ---
PATIENT ALERT AND ORIENTED X 4. VITAL SIGNS STABLE ON ROOM AIR. AFEBRILE. INCONTINENT OF BOWEL AND BLADDER. DENIES NAUSEA. PAIN BEING MANAGED WITH PO MEDICATION. FALL PRECAUTIONS IN PLACE AND BED ALARM ON. HOURLY ROUNDS MAINTAINED THROUGHOUT THE SHIFT. CALL LIGHT WITHIN REACH. NURSING WILL CONTINUE TO MONITOR.
[2019-08-05 20:15] VITALS: BP 153/69
[2019-08-06 03:55] LABS: ABSOLUTE BASOPHILS 0.1 thou/uL (0.0-0.2); ABSOLUTE EOSINOPHILS 0.4 thou/uL (0.0-0.7); ABSOLUTE MONOCYTES 0.9 thou/uL (0.0-1.2); ABSOLUTE NEUTROPHILS 6.7 thou/uL (1.6-8.1); BASOPHILS 0.8 %; EOSINOPHILS 4.1 %; HEMATOCRIT 33.4 % (37.0-47.0); HEMOGLOBIN 10.7 gm/dL (12.0-15.0); LYMPHOCYTES 11.6 %; MCH 28.2 pg (26.0-34.0); MCHC 31.9 g/dL (28.0-37.0); MCV 88.4 fL (80.0-100.0); MONOCYTES 9.9 %; NUCLEATED RBCS 0 /100WBC; PLATELET COUNT* 383 thou/uL (150-400); POLYS 73.6 %; RBC 3.78 mil/uL (4.20-5.00); RDW-CV 14.1 % (10.5-14.5)
[2019-08-06 04:25] LABS: ALBUMIN 2.7 g/dL (3.4-5.0); CALCIUM 7.9 mg/dL (8.5-10.1); CREATININE 0.6 mg/dL (0.6-1.3); MAGNESIUM 1.7 mg/dL (1.8-2.4); POTASSIUM 3.1 mmol/L (3.5-5.1); TOTAL BILIRUBIN 0.5 mg/dL (<0.1-1.0); TOTAL PROTEIN 6.1 g/dL (6.4-8.2)
--- NOTE | 2019-08-06 05:46 | NUR ---
PATIENT REQUESTED PAIN MEDS FOR ABDOMEN PAIN AT 2130 AND 0230. SHE KEPT AN ICE BAG ON ABDOMEN ALL NIGHT. STILL RUNNING TACHYCARDIC IN 105-112 RANGE. TOLERATING CLEAR LIQUID DIET WELL. WILL CONTINUE TO MONITOR.
[2019-08-06 08:00] VITALS: BP 200/95
[2019-08-06 12:00] VITALS: BP 156/74
[2019-08-06 15:57] VITALS: BP 115/61
--- NOTE | 2019-08-06 17:22 | NUR ---
PT RESTING IN BED THROUGHOUT SHIFT. PT REFUSED TO BE TURNED ABD REPOSITIONS HERSELF. PT INCONTINENT OF URINE. REFUSES BEDPAN OR BSC. PAIN WELL CONTROLLED IN ANKLE BUT CONTINUES TO C/O ABD PAIN. ENCOURAGED PT TO ONLY USE OPIATES FOR ANKLE PAIN. PIN CARE PERFORMED. PT ENCOURAGED TO ELEVATE LEG ON PILLOWS BUT PT REFUSES. WILL ASK FOR ORTHO CONSULT IN AM PER FAMILY REQUEST
[2019-08-06 20:00] VITALS: BP 145/91
[2019-08-07 04:13] LABS: CALCIUM 7.8 mg/dL (8.5-10.1); CREATININE 0.6 mg/dL (0.6-1.3); POTASSIUM 3.2 mmol/L (3.5-5.1)
--- NOTE | 2019-08-07 04:48 | NUR ---
PATIENT WAS UP THROUGH THE NIGHT. SHE WAS WANTING TO GET OUT OF BED SEVERAL TIMES. KEPT HER FOOT ELEVATED MUCH POSSIBLE. SHE HAD A RESTLESS NIGHT. SHE WAS COUGHING, KEPT HER HEAD ELEVATED AND ASSISTED HER IN REPOSITIONING EVERY HOUR. KEPT ICE ON HER ABDOMINAL AREA. SHE HAD A REALLY HARD TIME COMMUNITCATING. GAVE HER PAPER AND PEN TO RELAY INFO SHE APPEARED TO BE CONFUSED AND LETHARGIC. SHE WAS ABLE TO GET SOME SLEEP WITH SNORING AND CALLING OUT OFTEN. KEPT THE BED ALARM ON AND SIDE RAILS UP FOR HER SAFETY. HER ANKLE FIXTATION IS STILL IN TACT WITH GAUZE. PLANS ARE POSSIBLE D/C TO SNF WILL CONTINUE TO MONITOR.
[2019-08-07 07:59] VITALS: BP 133/54
--- NOTE | 2019-08-07 13:38 | NUR ---
DASHAWN discussed possible dc with pt nurse and was informed by pt nurse that pt would not be ready to dc today due to pt sodium had lowered and needs maybe another day in the hospital. Plan for pt to return to [facility] SNF at dc; DASHAWN will update admissions at [facility] and will continue to follow to assist with safe dc planning.
--- NOTE | 2019-08-07 17:03 | NUR ---
PT IS A&Ox2. SPEAKING UP TO SMALL PHRASES. ABLE TO RATE PAIN. PAIN PARTIALLY CONTROLLED WITH OXY IR AND TYLENOL. DENIED NAUSEA. TOLERATING SOLID FOOD. HAS NOT GOT UP DURING SHIFT. ACCURATE I&O. VITALS STABLE. FALL PRECAUTIONS IN PLACE. DRESSING C/D/I. CALL LIGHT WITHIN REACH. WILL CONTINUE TO MONITOR.
[2019-08-07 17:04] VITALS: BP 162/74
--- NOTE | 2019-08-08 05:31 | NUR ---
PATIENT REPORTED PAIN IN RIGHT FOOT AND IN ABDOMINAL AREA. GAVE OXY IR 5MG 2315. GAVE TYLENOL FOR ADDITIONAL PAIN RELIEF. SHE WAS SOMEWHAT RESTLESS BUT WAS ABLE TO SLEEP LATER IN THE NIGHT. GAUZE AROUND EXTERNAL FIXTATOR IS STILL INTACT AND ATTEMPTED TO KEEP ELEVATED. SODIUM LEVEL IS NOW 142 FROM 125. MAY D/C TO REHAB NOT THAT SODIUM IS CORRECTED. COMMUNICATION SEEMS TO BE IMRPOVING. WILL CONTINUE TO MONITOR.
[2019-08-08 07:30] VITALS: BP 139/50
[2019-08-08 08:04] LABS: ABSOLUTE EOSINOPHILS 0.2 thou/uL (0.0-0.7); ABSOLUTE LYMPHOCYTES 0.7 thou/uL (0.8-5.3); ABSOLUTE MONOCYTES 0.6 thou/uL (0.0-1.2); ABSOLUTE NEUTROPHILS 4.3 thou/uL (1.6-8.1); BASOPHILS 0.5 %; EOSINOPHILS 2.7 %; HEMOGLOBIN 10.6 gm/dL (12.0-15.0); LYMPHOCYTES 12.6 %; MCH 28.8 pg (26.0-34.0); MCHC 33.2 g/dL (28.0-37.0); MCV 86.7 fL (80.0-100.0); MONOCYTES 10.7 %; MPV 7.4 fl. (7.2-11.1); NUCLEATED RBCS 0 /100WBC; PLATELET COUNT* 379 thou/uL (150-400); POLYS 73.5 %; RBC 3.69 mil/uL (4.20-5.00); WBC 5.8 thou/uL (4.0-11.0)
[2019-08-08 08:21] LABS: CALCIUM 7.9 mg/dL (8.5-10.1); CREATININE 0.6 mg/dL (0.6-1.3); MAGNESIUM 1.7 mg/dL (1.8-2.4); POTASSIUM 3.2 mmol/L (3.5-5.1)
[2019-08-08] MEDS ORDERED: OXYCODONE HCL 55 MG PO (09:41)
[2019-08-08] MEDS ORDERED: IPRAT-ALBUT 0.5-3 ML INH (09:41)
[2019-08-08] MEDS ORDERED: BENAZEPRIL HCL20 MG PO (09:41)
[2019-08-08] MEDS ORDERED: LIDOPATCH1 EACH TOP (09:41)
[2019-08-08] MEDS ORDERED: KLOR-CON M2020 MEQ PO (09:41)
[2019-08-08] MEDS ORDERED: DULCOLAX10 MG RECTAL (09:41)
[2019-08-08] MEDS ORDERED: DOK PLUS TABLE1 EACH PO (09:41)
[2019-08-08] MEDS ORDERED: NORVASC10 MG PO (09:41)
[2019-08-08] MEDS ORDERED: MAGNESIUM400 MG PO (09:41)
[2019-08-08] MEDS ORDERED: BENTYL 20 MG TA20 M1 PO (09:41)
[2019-08-08] MEDS ORDERED: AMITRIPTYLINE H25 M2 PO (09:41)
[2019-08-08] MEDS ORDERED: LIPITOR 20 MG T20 M1 PO (09:53)
--- NOTE | 2019-08-08 14:20 | NUR ---
Pt to dc to SNF; finalized placement pending. SW spoke with pt dtr and pt who requested pt not to dc back to [facility] SNF after all. Pt/family prefer pt to dc to [facility]. SW faxed referral to [facility] this morning and then SW called this afternoon to check on status of referral; admissions was unable to answer at the time; SW left message for a call back. SW to continue to follow to assist with safe dc planning/SNF placement.
--- NOTE | 2019-08-08 15:16 | NUR ---
ASSESSMENT COMPLETE. PT ALERT AND ORIENTED X2, FORGETFUL. PT GIVEN PRN PAIN MEDICATION NEEDED. PIN SITE CARE COMPLETED THIS MORNING. PT IS ON ROOM AIR, VSS. PT TAKES MEDICATIONS WITHOUT DIFFICULTY AND TOLERATING MEALS. DENIES N/V. PT IS Q2 TURN. PT HAS NO OTHER CONCERNS AT THIS TIME. SEE ASSESSMENT AND VITALS FOR OTHER DETAILS. CALL LIGHT WITHIN REACH, WILL CONTINUE PLAN OF CARE
[2019-08-08 16:02] VITALS: BP 102/65
[2019-08-08 17:10] LABS: CORTISOL AM 12.9 ug/dL (6.2-19.4)
[2019-08-08 21:00] VITALS: BP 128/90
[2019-08-09 03:06] LABS: CALCIUM 8.1 mg/dL (8.5-10.1); CREATININE 0.6 mg/dL (0.6-1.3); MAGNESIUM 2.1 mg/dL (1.8-2.4); POTASSIUM 3.7 mmol/L (3.5-5.1)
--- NOTE | 2019-08-09 05:21 | NUR ---
PATIENT HAS SLEPT WELL THROUGHOUT MOST OF THE NIGHT. VSS ON RA. MEDICATIONS GIVEN ORDERED AND CHARTED. PATIENT HAS REMAINED ON BEDREST DURING THE NIGHT. EXTERNAL FIXATOR TO RIGHT LOWER EXTREMITY IS IN PLACE AND DRESSING IS C/D/I. PATIENT REMAINS NWB ON RIGHT LOWER EXTREMITY. FALL PRECAUTIONS IN PLACE AND HOURLY ROUNDS MADE. WILL CONTINUE WITH PLAN OF CARE AND NURSING TO MONITOR.
[2019-08-09 07:30] VITALS: BP 167/71
[2019-08-09] MEDS ORDERED: MILK OF MA2400 MG/11 PO (09:39)
--- NOTE | 2019-08-09 13:50 | NUR ---
Nutrition: Pt seen for LOS. Admitted with cough, leg swelling. Labs, meds, Hx noted. Seemed difficult for pt to talk with me, coughing, hard to speak aloud. She stated that she is eating fine and that she wants to go home today. Wt: 212#. Low fiber diet. Possible disch today. Low risk.
--- NOTE | 2019-08-09 16:30 | NUR ---
SPOKE WITH [facility] THIS ABOUT 1100. SHE SAID THEY DO NOT HAVE ANY AVAILABLE BEDS AND CANNOT TAKE HER DUE TO THIS. LEFT FOR DAUGHTER,JUAN, ON PHONE TO INFORM AND SEE IF THEY WANTED HER TO GO BACK TO [facility] OR HAVE ME FAX REFERRAL SOMEWHERE ELSE. NO RETURN CALL FROM DAUGHTER. SPOKE WITH PT.TO INFORM ABOUT [facility] AND IF SHE WOULD WANT TO GO BACK TO [facility] IF THEY COULD TAKE HER. SHE SAID NO. CALLED AT HOME AND HE WANTED REFERRAL FAXED TO [facility]. FAXED REFERRAL TO [facility] [phone]. WILL AWAIT RETURN CALL.
[2019-08-09 16:56] VITALS: BP 119/62
--- NOTE | 2019-08-09 18:05 | NUR ---
PT A&Ox2-3. PAIN CONTROLLED WITH TYLENOL AND OXY IR. DENIED NAUSEA/VOMITING. DID NOT GET UP OUT OF BED DURING SHIFT. TOLERATING MEALS. NWB LLE. NO IV. PENDING PLACEMENT. FALL PRECAUTIONS IN PLACE. CALL LIGHT WITHIN REACH. WILL CONTINUE TO MONITOR.
[2019-08-09 20:30] VITALS: BP 152/66
[2019-08-10 04:30] LABS: CALCIUM 8.3 mg/dL (8.5-10.1); CREATININE 0.6 mg/dL (0.6-1.3); POTASSIUM 3.6 mmol/L (3.5-5.1)
--- NOTE | 2019-08-10 06:27 | NUR ---
MEDS GIVEN ORDERED. PAIN CONTROLED WITH SCHEDULED TYLENOL. DRESSING TO RLE ON PINS C/D/I. MAINTAINED NWB. HOURLY ROUNDING COMPLETED. WILL CONTINUE TO MONITOR.
[2019-08-10 08:00] VITALS: BP 146/63
[2019-08-10] MEDS ORDERED: DOK PLUS TABLE1 EACH PO (09:38)
[2019-08-10 12:12] VITALS: BP 146/63
--- NOTE | 2019-08-10 12:42 | NUR ---
[facility] CALLED AND SAID THEY CAN ACCEPT PT.TO A SNF BED, BUT THEY ARE A NON SMOKIN FACILITY/CAMPUS. PT.IS A SMOKER. DISCUSSED THIS WITH PT. SHE SAID SHE HAS NOT SMOKED SINCE SHE WAS AT [facility] THE FIRST TIME. SHE IS AGREEABLE TO GO TO [facility]. ADAN CALLED ,TAMMY, ON CELL. HE WAS AGREEABLE, WELL. PT. TO GO BY [facility]. HAS EXTERNAL FIXATOR ON LEG AND HAS NOT BEEN UP TO CHAIR,PER NURSING. SCHEDULED FOR 1400 WITH [facility]. AND PT. INFORMED. CHART COPIED TO GO WITH PT. GERALDINERN TO CALL REPORT. CM FAXED ORDERS TO [facility].
--- NOTE | 2019-08-10 16:37 | NUR ---
PT DISCHARGED BY AMBULANCE TO [facility] AT 1555. REPORT CALLED. NO IV. PAIN CONTROLLED AND PT STABLE UPON DISCHARGE. CHART COPIED AND PAPER SCRIPTS SENT WITH AMBULANCE.
== END 2019-08-10 15:55 | DRG 391 ==
LOC: M.ERS 19:17 → M.2W 21:54 → M.TBA-ER 21:54 → M.2W 22:50 → M.ORTHSURG 08-03 21:27
PROVIDERS: Emergency Medicine; Family Medicine; ADMIT Family Medicine
DX: K59.00 Constipation, unspecified (principal); J96.01 Acute respiratory failure with hypoxia; I74.09 Other arterial embolism and thrombosis of abdominal aorta; R47.01 Aphasia; J98.11 Atelectasis; E87.1 Hypo-osmolality and hyponatremia; E03.9 Hypothyroidism, unspecified; R00.0 Tachycardia, unspecified; J40 Bronchitis, not specified as acute or chronic; D64.9 Anemia, unspecified; E66.01 Morbid (severe) obesity due to excess calories; R49.0 Dysphonia; R47.1 Dysarthria and anarthria; I65.23 Occlusion and stenosis of bilateral carotid arteries; G89.29 Other chronic pain; R10.9 Unspecified abdominal pain; E87.6 Hypokalemia; E83.51 Hypocalcemia; G47.33 Obstructive sleep apnea (adult) (pediatric); Z90.49 Acquired absence of other specified parts of digestive tract; Z90.710 Acquired absence of both cervix and uterus; Z88.6 Allergy status to analgesic agent; Z88.8 Allergy status to other drugs, medicaments and biological substances; Z68.35 Body mass index [BMI] 35.0-35.9, adult; Z87.891 Personal history of nicotine dependence

== ENCOUNTER 2019-08-18 12:14 | Inpatient (IN) | payer MEDICARE, OTHER ==
[~2019-08-18] VITALS: Ht 160 cm; Wt 90.7 kg
--- NOTE | ~2019-08-18 | H ---
[address] [address] HISTORY AND PHYSICAL Name: YUNIER SONI Room: [address] ADM IN M.R.#: [id number] Admission: 08/18/19 Attend Phys: Surendra Vasquez Discharge: Date of : 52 Report #: [id number] THIS REPORT FOR: //name// For History and Physical please refer to the consultation note in the patient's medical record. By: [id number] Records Staff VICTOR MANUEL /GAMAL
[~2019-08-18 12:14] MED LIST changes: +AMITRIPTYLINE H25 M2 PO; +ARMOUR THYROID180 M1 PO; +BAZA CR.1 E1; +BENAZEPRIL HCL20 MG PO; +BENTYL 20 MG TA20 M1 PO; +DULCOLAX10 MG RECTAL; +DULCOLAX5 MG PO; +IPRAT-ALBUT 0.5-3 ML INH; +KLOR-CON M2020 MEQ PO; +LIDOPATCH1 EACH TOP; +LIPITOR 20 MG T20 M1 PO; +MAGNESIUM400 MG PO; +MILK OF MA2400 MG/11 PO; +MIRALAX17 GM PO; +NORVASC10 MG PO
[2019-08-18 20:23] VITALS: BP 118/38
[2019-08-19 01:10] VITALS: BP 93/46
[2019-08-19 03:47] LABS: HEMATOCRIT 30.2 % (37.0-47.0); HEMOGLOBIN 9.8 gm/dL (12.0-15.0)
--- NOTE | 2019-08-19 06:29 | NUR ---
PATIENT CAME UP FROM PACU DURING CHANGE OF SHIFT. PATIENT ADMISSION HISTORY AND ASSESSMENT WAS COMPLETED CHARTED. IV FLUIDS WERE STARTED ORDERED. PLASTER CAST IS IN PLACE TO RLE. PATIENT WAS GIVEN PAIN MEDICINE TWICE FOR PAIN. WILL CONTINUE TO MONITOR.
[2019-08-19 08:05] VITALS: BP 116/47
[2019-08-19 16:00] VITALS: BP 134/55
--- NOTE | 2019-08-19 17:17 | NUR ---
PT A&Ox3. VITALS STABLE. CAST IS C/D/I. PT CAN WIGGLE HER TOES AND HAS GOOD BLOOD FLOW TO RLE. PAIN PARTIALLY CONTROLLED WITH NORCO. DENIED N/V. PT HAS NOT GOT UP DURING SHIFT. IV PATENT. WILL COMMUNICATE THROUGH WRITING AT TIMES DUE TO APHASIA. TOLERATING DIET. FALL PRECAUTIONS IN PLACE. CALL LIGHT WITHIN REACH. WILL CONTINUE TO MONITOR.
[2019-08-19 20:00] VITALS: BP 107/51
[2019-08-20] VITALS: BP 128/60
--- NOTE | 2019-08-20 02:13 | NUR ---
MRS SONI HAS BEEN REFUSING ALL RESPIRATORY TREATMENTS. MAY WE DC TREATMENTS SCHEDULED QID AND MAKE THEM PRN IF PATIENT CHANGES MIND AT ANYTIME WE COULD STILL GIVE.
[2019-08-20 04:00] VITALS: BP 129/60
[2019-08-20 04:25] LABS: HEMATOCRIT 30.4 % (37.0-47.0); HEMOGLOBIN 9.7 gm/dL (12.0-15.0); MCH 28.5 pg (26.0-34.0); MCHC 31.9 g/dL (28.0-37.0); MCV 89.4 fL (80.0-100.0); MPV 7.5 fl. (7.2-11.1); RBC 3.4 mil/uL (4.20-5.00); RDW-CV 14.5 % (10.5-14.5); WBC 4.4 thou/uL (4.0-11.0)
[2019-08-20 04:32] LABS: CALCIUM 8.4 mg/dL (8.5-10.1); CREATININE 0.8 mg/dL (0.6-1.3)
--- NOTE | 2019-08-20 05:52 | NUR ---
PATIENT SLEPT MOST OF THE NIGHT. IV FLUIDS WERE SALINE LOCKED THIS MORNING. PATIENT WAS GIVEN PAIN MEDICINE NEEDED. PLASTER CAST REMAINS IN PLACE RLE KEPT ON PILLOWS FOR ELEVATION. PATIENT REMAINS ON OXYGEN AT 2L PER NASAL CANNULA. WILL CONTINUE TO MONITOR.
[2019-08-20 07:46] VITALS: BP 119/49
[2019-08-20 15:46] VITALS: BP 134/54
--- NOTE | 2019-08-20 17:29 | NUR ---
PT A&Ox3. VITALS STABLE. IV PATENT. PAIN CONTROLLED WITH NORCO. DENIED N/V. WILL START WORKING WITH THERAPY TOMORROW. CAST IS C/D/I, FOOT ELEVATED. TOLERATING DIET. FALL PRECAUTIONS IN PLACE. CALL LIGHT WITHIN REACH. WILL CONTINUE TO MONITOR.
--- NOTE | 2019-08-21 06:51 | NUR ---
PATIENT HAS SLEPT WELL THROUGHOUT MOST OF THE NIGHT. VSS ON 2L 02 VIA NASAL CANNULA. NO C/O PAIN. MEDICATIONS GIVEN ORDERED AND CHARTED. ASSESSMENT CHARTED. PATIENT TURNS SELF IN BED. PATIENT HAS REMAINED NWB ON RIGHT LOWER EXTREMITY. ORTHO HERE THIS AM TO SEE PATIENT. CAST IN PLACE TO RIGHT LOWER EXTREMITY AND ELEVATED. IV IN RIGHT WRIST-SL. PATIENT INSTRUCTED TO USE CALL LIGHT WHEN NEEDING ASSISTANCE. HOURLY ROUNDS MADE. WILL CONTINUE WITH PLAN OF CARE AND NURSING TO MONITOR.
[2019-08-21 07:48] VITALS: BP 145/74
--- NOTE | 2019-08-21 13:30 | NUR ---
PT.IN BED. PT.CAME FROM [facility] FOR [facility]ERY. EXTERNAL FIXATOR PINS REMOVED DUE TO INFECTION. HAS CAST TO R LEG NOW. IS NWB TO R LEG. ASKED PT.WHAT HER PLAN WAS WHEN SHE WAS DISCHARGED. SHE SAID GO HOME. TOLD HER SHE WOULD HAVE TO BE ABLE TO WALK SOME OR AT LEAST BE ABLE TO TRANSFER TO BE ABLE TO GO HOME AND HER WOULD HAVE TO BE ABLE TO CARE FOR HER. CM WILL FOLLOW. PT.C/O BEING SWOLLEN ALL OVER. BALDEMAR CHANDLER INFORMED.
[2019-08-21 15:45] VITALS: BP 145/65
--- NOTE | 2019-08-21 17:33 | NUR ---
PT A&Ox3-4. VITALS STABLE. IV PATNET. PT AND OT WENT TO WORK WITH PT AND PT REFUSED DUE TO ABD PAIN AND FOOT PAIN. PAIN PARTIALLY CONTROLLED WITH NORCO. BENTYL GIVEN FOR ABD PAIN, PT STATES THAT IT HELPS. CAST IS C/D/I. PT HAS GOOD COLORING AND PULSE ON RT FOOT, CAN WIGGLE TOES. HAS NOT GOT UP DURING SHIFT. FALL PRECAUTIONS IN PLACE. CALL LIGHT WITHIN REACH. WILL CONTINUE TO MONITOR.
[2019-08-21 20:48] VITALS: BP 159/65
--- NOTE | 2019-08-22 05:09 | NUR ---
ASSUMED CARE OF PT 08/21/19 AT APPROX 1930, PT REMAINED A&OX4 THROUGHOUT NIGHT, ASSESSMENTS AND HOURLY ROUNDINGS COMPLETED, PAIN MED REQUESTED BY PT AND GIVEN ORDERED, PT SLEPT WELL. FALL PRECAUTIONS IN PLACE. WILL CONTINUE TO MONITOR.
[2019-08-22 07:51] VITALS: BP 153/71
[2019-08-22 21:31] VITALS: BP 133/51
--- NOTE | 2019-08-23 04:14 | NUR ---
ASSUMED CARE OF PT 08/22/19 APPROX 1930, PT A&OX4, ASSESSMENTS AND HOURLY ROUNDINGS COMPLETED, PT REMAINED ON 2L NC, PAIN MEDS REQUESTED BY PT AND GIVEN ORDERED, PT TURNED Q2HR. WILL CONTINUE TO MONITOR.
[2019-08-23 05:07] LABS: HEMOGLOBIN 11.1 gm/dL (12.0-15.0); MCH 28.5 pg (26.0-34.0); MCHC 32.5 g/dL (28.0-37.0); MCV 87.6 fL (80.0-100.0); MPV 6.9 fl. (7.2-11.1); RBC 3.88 mil/uL (4.20-5.00); RDW-CV 14.5 % (10.5-14.5); WBC 4.6 thou/uL (4.0-11.0)
[2019-08-23 05:24] LABS: CALCIUM 8.7 mg/dL (8.5-10.1); CREATININE 0.6 mg/dL (0.6-1.3); MAGNESIUM 1.9 mg/dL (1.8-2.4); POTASSIUM 3.8 mmol/L (3.5-5.1)
[2019-08-23 08:34] VITALS: BP 156/67
[2019-08-23 12:00] VITALS: BP 146/71
[2019-08-23 16:00] VITALS: BP 151/75
--- NOTE | 2019-08-23 16:16 | NUR ---
SW called pt Reji to discuss plan at dc. Pt stated that he plans to take pt home at dc because he feels pt does not participate well in therapies. Pt said that he would want pt to try HH at home if pt would agree to try to work with HH services. Pt bought RW, hospital bed, BSC for home and is hopeful that if wc needed, pt insurance would cover wc and SW could arrange for wc at dc if continued need and if pt still meets criteria for wc. SW to continue to follow to assist with safe dc planning.
--- NOTE | 2019-08-23 20:01 | NUR ---
PATIENT UP TO BEDSIDE COMMODE WITH ASSISTANCE, WALKER, AND GAIT BELT. ALL SAFETY MEASURES MAINTAINED. PATIENT AND PATIENT'S FAMILY REPORT PATIENT FEELING CONSTIPATED AND REQUESTING ENEMA. DR. AMADO NOTIFIED. NEW ORDERS RECEIVED AND VERIFIED WITH READ BACK. PATIENT DENIES FURTHER NEEDS AT THIS TIME. MICROBIOLOGY CONTACTED REGARDING CULTURES. MICRBOILOGY REPORTS CULTURES SENT OUT AND ARE PENDING.
[2019-08-23 22:00] VITALS: BP 127/55
[2019-08-24 04:34] LABS: HEMOGLOBIN 10.9 gm/dL (12.0-15.0); MCH 28.9 pg (26.0-34.0); MCV 87.5 fL (80.0-100.0); RBC 3.78 mil/uL (4.20-5.00); RDW-CV 14.8 % (10.5-14.5); WBC 5.4 thou/uL (4.0-11.0)
[2019-08-24 04:50] LABS: ALBUMIN 2.9 g/dL (3.4-5.0); CALCIUM 9.2 mg/dL (8.5-10.1); CREATININE 0.7 mg/dL (0.6-1.3); POTASSIUM 3.7 mmol/L (3.5-5.1); TOTAL BILIRUBIN 0.2 mg/dL (<0.1-1.0); TOTAL PROTEIN 6.4 g/dL (6.4-8.2)
--- NOTE | 2019-08-24 05:31 | NUR ---
PT ALERT AND ORIENTED TIMES 3-4. MEDS GIVEN ORDERED. NORCO GIVEN FOR PAIN PER PT REQUEST. PT UP TO THE COMMODE WITH MODERATE ASSIST. NO BM THIS SHIFT. NEW IV INSERTED SINCE PT PULLED HER IV. LEGS ELEVATED ON PILLOW. HOURLY ROUNDING COMPLETED. WILL CONTINUE TO MONITOR.
[2019-08-24 07:40] VITALS: BP 124/54
--- NOTE | 2019-08-24 12:18 | CON ---
[address] [address] CONSULTATION Name: YUNIER SONI Room: [address] ADM IN M.R.#: [id number] Admission: 08/18/19 Attend Phys: Surendra Vasquez Discharge: Date of : 52 Report #: [id number] THIS REPORT FOR: //name// CC: Woo Plascencia DATE OF SERVICE: 08/23/2019 INFECTIOUS DISEASE CONSULTATION ATTENDING PHYSICIAN: Samuel Plascencia MD REASON FOR EVALUATION: Right external fixator infection involving the distal lower extremity. HISTORY OF PRESENT ILLNESS: Chart reviewed and the patient is examined. This is a 69-year-old female with extensive medical history, who sustained a bimalleolar right ankle fracture on 07/17/2019. The external fixator was placed over the course of last few days, had increasing pain associated with it. History is somewhat difficult to obtain. It is not clear if she has a clear understanding. She did note increasing pain associated with it. Based on the available records, this has been newly diagnosed with external fixator infection. This was removed. Cultures are pending. Empirically placed on cefazolin. It is unclear that she had recent fevers and mild anorexia. No significant pulmonary or gastrointestinal related complaints, although it is notable roughly 3 weeks ago. She was evaluated in the Emergency Room with complaints of abdominal pain, had been chronic. ALLERGIES: LISTED TO CODEINE. MEDICATIONS: Include cefazolin 1 gm IV q. 8 hours, enoxaparin, multivitamin, cyanocobalamin, lisinopril, amlodipine, pantoprazole, amitriptyline, p.r.n. analgesics, and antiemetics. PAST MEDICAL HISTORY: History of hypothyroidism, back surgery, appendectomy, hysterectomy, cholecystectomy, and tonsillectomy. SOCIAL HISTORY: Nonsmoker. No ethanol. No illicit drug use. FAMILY HISTORY: Noncontributory. REVIEW OF SYSTEMS: Not reliably obtained. PHYSICAL EXAMINATION: GENERAL: She is alert and appears somewhat chronically ill and undernourished. It is unclear whether she has some cognitive deficits [place] [address] CONSULTATION Name: YUNIER SONI Room: [address] IN [facility]#: [id number] Admission: 08/18/19 Attend Phys: Surendra Vasquez Discharge: Date of : 52 Report #: [id number] deficits. She does make eye contact. VITAL SIGNS: Temperature 97.3, pulse 109, respirations 21, and blood pressure 146/71. HEENT: Normocephalic. Extraocular muscles intact. NECK: Supple. LUNGS: Generally clear to auscultation. Somewhat diminished at the bases. Few scattered crackles. HEART: Regular. I do not appreciate a murmur. She is tachycardic. ABDOMEN: Mildly distended and soft. There are no peritoneal signs. GENITOURINARY AND RECTAL: Deferred. EXTREMITIES: She has got a cast over the distal right lower extremity to below the knee. Toes are palpable and they are warm. LABORATORY DATA: CBC: White count of 4.6, H and H 11.1 and 34, and platelets of 454. Electrolytes: Sodium 135, potassium 3.8, chloride 97, bicarbonate is 29, anion gap of 9, and BUN and creatinine 6 and 0.6. Operative cultures from 08/18/2019 in progress. Gram stain without organisms, no white cells seen. ASSESSMENT AND PLAN: Infected external fixator distal right lower extremity. We will continue the empiric therapy with cefazolin and presume skin related bran including primarily Staph or Strep. At this point, the hardware is off. Reviewed the operative culture and noted absence of gross purulence. Wound care as per Orthopedic Surgery. Suspect that she will need extended course of therapy, perhaps parenteral. At this point, she has a peripheral IV. Consider PICC in coming days and monitor expectantly. <ELECTRONICALLY SIGNED> By: Harley Franco MD 08/24/19 1218 1455 1522Joantoinette Franco MD /nt
--- NOTE | 2019-08-24 13:24 | EKG ---
[place] [address] ELECTROCARDIOGRAM REPORT Name: YUNIER SONI Room: [address] ADM IN M.R.#: [id number] Admission: 08/18/19 Attend Phys: Surendra Vasquez Discharge: Date of : 52 Report #: [id number] THIS REPORT FOR: //name// [facility] Test Date: 2019-08-24 Test Time: 07:59:44 Pat Name: YUNIER SONI Department: Room: [address] Gender: F Story Reader: : 1950 Requested By: Arlette Barroso Order Number: [id number] MD: Jake Jeffers Measurements Intervals [place] Rate: 121 P: 75 [place]: 141 QRS: 66 QRSD: 82 T: 55 QT: 324 QTc: 460 Interpretive Statements Sinus tachycardia Compared to ECG 08/01/2019 19:41:08 No significant changes Electronically Signed On 08-24-2019 13:24:24 CDT by Jake Jeffers [email or web address] <ELECTRONICALLY SIGNED> By: Jake Jeffers MD, [facility] 08/24/19 1324 8 8 Jake Jeffers MD, FACC /EPI
[2019-08-24 15:00] VITALS: BP 167/59
--- NOTE | 2019-08-24 16:14 | NUR ---
DASHAWN met with pt and pt to discuss safe dc planning and review information pt shared with SW yesterday about plan for pt to dc home with who has purchased some DME but SW to work on order for wc for home. SW discussed HH services and explained additional in home assistance would be out of pocket expense but SW would provide any resources/referrals that might be of any support for pt care at home. Pt said he wants to find out when pt surgery would be scheduled and pt also hoping for answers soon about pt healing process and continued health plan. DASHAWN communicated with Dr Barroso about pt/ plans and concerns related to dc planning. SW to continue to follow to assist with safe dc planning.
--- NOTE | 2019-08-24 18:41 | NUR ---
Patient awake in bed. All safety measures maintained. Patient encouraged and assisted in turning and repositioning q2 hours. Patient assisted throughout day with walker and gait belt to bedside commode and chair. Patient denies further needs at this time. Patient frequently educated throughout shift on fall prevention and safety measures.
[2019-08-24 22:47] VITALS: BP 102/47
--- NOTE | 2019-08-25 06:36 | NUR ---
PATIENT SLEPT PART OF THE NIGHT. PATIENT HAS BEEN VERY IMPULSIVE PART OF THE NIGHT CLIMBING OUT OF AND BED AND PATIENT PULLED OUT TWO IV'S. CAST REMAINS IN PLACE TO E. WILL CONTINUE TO MONITOR.
--- NOTE | 2019-08-25 12:23 | NUR ---
Nutrition: Pt admitted with infection. Wt: 200#. Regular diet. Pt stated she is eating well. She did say she had some wt loss recently, but didn't have any idea how much nor how much she usually weighs. RX: ROHINI lemos. Albumin 2.9. Seen for LOS. As long as pt is eating her meals well, low nutrition concern at this time.
[2019-08-25 15:00] VITALS: BP 148/61
--- NOTE | 2019-08-25 15:41 | NUR ---
DASHAWN CM continuing to follow pending dc plan as cultures returned, picc line, iv abx, surgery on Wednesday. SW to assist with safe dc planning; pt/pt continue to want pt to be able to dc home with DME, HH therapy follow up, pt said he just needed a days notice to make sure their house is ready for pt to dc home. SW awaiting doctor's progress note justifying need for wc in home environment to be able to order wc.
--- NOTE | 2019-08-25 17:18 | NUR ---
ASSESSMENT COMPLETE. PT CONFUSED MOST OF THE DAY. PT HAD SPONGE BATH AND BED LINEN CHANGE TODAY. UP ONE ASSIST TO BSC. PT IS FALL RISK, BED ALARM ON. PT IN CHAIR FOR LUNCH AND DINNER. PT HAD PICC LINE PLACED IN RIGHT UPPER ARM. IV VANC STARTED PER DR BARRERA. ORTHO PLANS ON SURGERY WEDNESDAY, NOTIFIED THEM REGARDING POSITIVE BLOOD CULTURES. KUB DONE TODAY, SEE RESULTS. PT HAS IV IN LEFT FA, SL. PT TOLERATING MEALS AND DENIES N/V. PT GIVEN PRN PAIN MEDICATION. SEE ASSESSMENT AND VITALS FOR OTHER DETAILS. CALL LIGHT WITHIN REACH, WILL CONTINUE PLAN OF CARE
[2019-08-25 21:35] VITALS: BP 126/48
--- NOTE | 2019-08-26 01:50 | NUR ---
PATIENT PULLED OUT PICC AND LFA IV AFTER NUMEROUS ATTEMPTS TO AVOID THIS BY WRAPPING SITES AND EDUCATION. DR AGOSTO WAS IMMEDIATELY NOTIFIED OF THIS. OCCURRED AROUND 2200 ON 08/25/19.
--- NOTE | 2019-08-26 06:15 | NUR ---
BEGINNING OF SHIFT SHE BECAME AGITATED AND PULLED OUT PICC AND LFA IV (SEE PREVIOUS NOTE) GAVE .25 OF XANAX SHE WAS ABLE TO GET SOME REST/ SHE WAS AGITATED TILL ABOUT MIDNIGHT. SHE WAS PULLING THE STUFFING OUT OF HER CAST AND STILL TACHYCARDIC AT 110-115 BPM. I GAVE HER 2 HYDROCODONE FOR PAIN BEFORE BEDTIME. ORTHO IS TO POSSIBLY SCHEDULE SURGERY FOR WEDNESDAY. DR AGOSTO WAS INFORMED OF THE LACK OF IV ACCESS SO SHE WAS NOT ABLE TO RECEIVE HER NIGHT DOSE OF VANC. SHE IS STILL COUGHING SOME AND UNABLE TO FULLY COMMUNICATE HER WISHES. PAIN ASSESSMENTS WERE MADE AND SHE WAS REPOSITIONED Q2.
[2019-08-26 07:50] VITALS: BP 141/54
[2019-08-26 16:34] VITALS: BP 153/65
--- NOTE | 2019-08-26 17:53 | NUR ---
ASSUMED CARE OF PATIENT AT APPROX 0730. ALERT AND ORIENTED X2-3. PATIENT CAN SPEAK BUT CHOOSES TO GRUNT AND POINT FOR COMMUNICATION. PATIENT VERY CONCERNED ABOUT WANTING TO HAVE A BOWEL MOVEMENT TODAY, LAST BOWEL MOVEMENT WAS ON AUG 10. PATIENT REFUSED MORNING MEDICATIONS AT 0830, I ATTEMPTED TO GIVE MEDICATIONS TWO MORE TIMES AND PATIENT FINALLY TOOK HER MORNING MEDICATIONS AT 1130. PATIENTS DAUGHTER WAS AT THE DESK REPEATEDLY THROUGHOUT SHIFT, SHE WAS ASKING FOR PAIN MEDICATIONS FOR THE PATIENT ON NUMEROUS OCCASSIONS, I EXPLAINED TO HER THAT THE PATIENT IS THE ONE WHO RATES HER PAIN AND ASKS FOR MEDICATION, WE ARE NOT ALLOWED TO MEDICATE BASED ON A FAMILY MEMBERS ASSESSMENT. PATIENT DAUGHTER CALLED AND CAME TO THE DESK 4 TIMES DEMANDING THAT PATIENT GET AN EMENA. DR LEDEZMA INFORMED AND HE STATED TO GIVE HER ORAL MEDICATIONS AND IF NO BOWEL MOVEMENT, THE PATIENT COULD THEN HAVE AN ENEMA. PATIENT ATTEMPT TO GET UP WITHOUT ASSISTANCE AND IS NON COMPLIANT WITH WEIGHT BEARING RESTRICTIONS ON RIGHT LOWER EXTREMITY. FALL PRECAUTIONS IN PLACE WITH FREQUENT MONITORING. CALL LIGHT IN REACH, PATIENT DOES NOT USE IT APPROPRIATELY. ROUNDS COMPLETED. NURSING WILL CONTINUE TO MONITOR.
[2019-08-26 19:40] VITALS: BP 121/50
[2019-08-27 04:21] LABS: MCH 28.7 pg (26.0-34.0); MCHC 32.4 g/dL (28.0-37.0); MCV 88.6 fL (80.0-100.0); MPV 7.5 fl. (7.2-11.1); RBC 3.5 mil/uL (4.20-5.00); RDW-CV 14.9 % (10.5-14.5); WBC 4.5 thou/uL (4.0-11.0)
[2019-08-27 04:42] LABS: ALBUMIN 2.8 g/dL (3.4-5.0); CALCIUM 8.6 mg/dL (8.5-10.1); CREATININE 0.6 mg/dL (0.6-1.3); TOTAL BILIRUBIN 0.2 mg/dL (<0.1-1.0); TOTAL PROTEIN 5.9 g/dL (6.4-8.2)
--- NOTE | 2019-08-27 05:34 | NUR ---
PT ALERT AND OIRENTED. HR TACHY. VSS ON RA. ASSESSMENT DOCUMENTED. MEDS GIVEN PER EMAR. PT HAD A LARGE BM THIS SHIFT. SLEPT MOST OF SHIFT. PT TURNS SELF IN BED. NO IV ACCESS AT THIS TIME. CALL LIGHT WITHIN REACH. HOURLY ROUNDINGS MADE. WILL CONTINUE TO MONITOR.
[2019-08-27 09:30] VITALS: BP 146/64
[2019-08-27 19:40] VITALS: BP 125/57
--- NOTE | 2019-08-27 20:24 | NUR ---
ALERT TO SELF. FREQUENTLY FORGETFUL. NEEDS FREQUENTLY REMINDERS AND CUEING. PATIENT PULLS TAPE AND STUFFING OUT OF CAST EVEN THOUGH INSTRUCTED NOT TO REMOVE. TOP OF CAST RETAPED X2 THIS SHIFT. RIGHT TOES WARM AND PINK. REMAINS APHASIC AND DIFFICULTY TO UNDERSTAND. AT TIMES WILL WRITE WHAT SHE WANTS TO SAY. CONTINUES TO RECIEVE IM ANTIBIODIC INJECTIONS WITHOUT DIFFICULTY. WILL CONTINUE TO MONITOR. BED ALARM/CHAIR ALARM ON. NEEDS FREQUENT REMINDERS TO CONTINUE TO BE NONWEIGHTBEARING TO RIGHT LOWER EXTREMITIES. CALL LIGHT WITHIN REACH. PATIENT RESTLESS IN BED AND THROUGHOUT DAY MEDICATION GIVEN.
[2019-08-28 04:59] LABS: HEMATOCRIT 32.3 % (37.0-47.0); HEMOGLOBIN 10.4 gm/dL (12.0-15.0); MCH 28.4 pg (26.0-34.0); MCHC 32.4 g/dL (28.0-37.0); MCV 87.8 fL (80.0-100.0); MPV 7.3 fl. (7.2-11.1); RBC 3.67 mil/uL (4.20-5.00); RDW-CV 14.7 % (10.5-14.5)
[2019-08-28 06:00] LABS: ALBUMIN 2.9 g/dL (3.4-5.0); CALCIUM 8.6 mg/dL (8.5-10.1); CREATININE 0.8 mg/dL (0.6-1.3); POTASSIUM 4.2 mmol/L (3.5-5.1); TOTAL BILIRUBIN 0.2 mg/dL (<0.1-1.0); TOTAL PROTEIN 5.5 g/dL (6.4-8.2)
[2019-08-28 07:30] VITALS: BP 109/55
--- NOTE | 2019-08-28 07:39 | NUR ---
PT ALERT ALERT AND ORIENTED. TACHY. VSS ON RA. ASSESSMENT DOCUMENTED. PT GOT AGITATED EARLY THIS SHIFT. TRIED GETTING OUT OF BED. XANAX GIVEN ONETIME THIS SHIFT. PAIN MEDS GIVEN X2 THIS SHIFT. PT SLEPT MOST OF SHIFT. IM ABX GIVEN ORDERED. CALL LIGHT WITHIN REACH. HOURLY ROUNDINGS MADE. WILL CONTINUE TO MONITOR.
[2019-08-28 11:31] VITALS: BP 113/59
--- NOTE | 2019-08-28 14:52 | NUR ---
PATIENT PULLED OUT PRIOR PICC LINE DUE TO CONFUSION AT NIGHT. ORDER OBTAINED BY RICHARD MCDERMOTT FOR ONE ON ONE SITTER. RIGT BASILC VESSEL ACCESSED FOR SINGLE LUMEN 4 PUERTO RICAN PICC. LINE PRE-TRIMMED TO 42CM AND ADVANCED TO THE ZERO KRUPA WITH NO RESISTANCE MET. UPPER ARM CIRCUMFERENCE ABOVE INSERTION SITE= 12 1/2". SHERLOCK MAGNET AND 3CG CONFIRMATION OF TIP TERMINATION AT THE CAVOATRIAL JUNCTION APPRECIATED. STYLET REMOVED, INSERTION STIE DRESSED AND REPORT GIVEN TO RICHARD MCDERMOTT.
[2019-08-28 15:48] VITALS: BP 147/62
--- NOTE | 2019-08-28 16:56 | NUR ---
SW following for dc planning; picc line placed today, SW to send referral to check pt iv abx benefits. DASHAWN spoke with about wc order and SW awaiting progress note; SW to discuss with again; also will arrange for HH services when pt is medically stable to dc home vs another discussion with pt/pt about possible SNF placement at dc.
--- NOTE | 2019-08-28 17:30 | NUR ---
ASSESSMENT COMPLETE. PT CONFUSED AND IMPULSIVE THROUGHOUT THE DAY. PRN PAIN AND ANXIETY MEDICATION GIVEN. PT IS ON ROOM AIR, VSS. PT IS FALL RISK, BED ALARM ON. PT HAD PICC LINE REPLACED, SITTER ORDERED PATIENT PULLED LAST PICC. FAMILY AT BEDSIDE PART OF THE DAY. MRI ORDERED, UNABLE TO GET PATIENT WAS CLIMBING OUT OF MRI. DR CARDOZO ORDERED ONE TIME ORDER FOR TOMORROW MRI. SEE ASSESSMENT AND VITALS FOR OTHER DETAILS. CALL LIGHT WITHIN REACH. WILL CONTINUE PLAN OF CARE
[2019-08-28 21:00] VITALS: BP 163/68
--- NOTE | 2019-08-29 06:51 | NUR ---
PATIENT SLEPT MOST OF THE NIGHT. PICC LINE REMAINS IN PLACE AND IV VANC WAS GIVEN ORDERED. PATIENT WAS GIVEN PAIN MEDICINE THREE TIMES THIS SHIFT. PATIENT REMAINS A 1:1 SO SHE DOES NOT PULL OUT HER PICC LINE AGAIN. WILL CONTINUE TO MONITOR.
[2019-08-29 08:57] VITALS: BP 152/73
--- NOTE | 2019-08-29 13:38 | NUR ---
SW called and spoke with pt Reji about safe dc planning and discussed concern for pt to dc home at time of dc due to pt needs and especially need for IV abx at dc every 12 hours. Pt said that he understands pt would not be able to dc home at this point but was under the impression pt could remain in hospital. SW explained that goal is for pt to no longer need sitter and then for pt to be medically appropriate for lower level of care; pt does not agree and again explained that "each time pt at place like that; pt came back with a bigger problem". Pt said he would discuss that with pt doctor. SW encouraged pt to discuss with pt family about dc planning and to be aware that pt will most likely be medically ready to dc from acute hospitalization sooner than pt would prefer and to consider SNF at dc due to pt needs. SW to continue to follow to assist with safe dc planning.
--- NOTE | 2019-08-29 15:26 | NUR ---
NURSE WENT TO [facility], NOTICED THE PICC LINE COILED IN PICC LINE DRESSING. [facility]ION NOTIFIED THEY PLACED PICC YESTERDAY. STAT CHEST XRAY ORDERED SHOWED PLACEMENT IN THE UPPER SVC. DR BARRERA NOTIFIED AT 1525 AND STATED PICC IS IN A PLACE OK TO CONTINUE VANCOMYCIN. DRESSING CHANGED BY INFUSION NURSE. PICC LINE DRAWS AND FLUSHES WITHOUT COMPLICATION. WILL CONTINUE TO MONITOR
[2019-08-29 16:00] VITALS: BP 144/67
[2019-08-29 21:00] VITALS: BP 130/67
--- NOTE | 2019-08-30 06:04 | NUR ---
PATIENT SLEPT MOST OF THE NIGHT. PICC LINE REMAINS IN PLACE AND VANC WAS GIVEN ORDERED. PATIENT WAS GIVEN PAIN MEDICINE ONCE THIS SHIFT. WILL CONTINUE TO MONITOR.
[2019-08-30 08:05] VITALS: BP 120/51
--- NOTE | 2019-08-30 13:31 | NUR ---
DASHAWN met with pt, pt family and Dr Plascencia to discuss safe dc planning. Pt family concluded that they would be open to the option of SNF for a few weeks due to pt needs and pt agreeable to [facility] only; pt said that if they are unable to accept pt, then they will figure out a way for pt to dc home with assistance, equipment, iv abx and as much care as possible. DASHAWN sent referral to [facility] and will follow up with referral and continue to assist with safe dc placement, plan.
[2019-08-30 15:48] VITALS: BP 114/48
--- NOTE | 2019-08-30 18:36 | NUR ---
PATIENT RESTING IN BED. PATIENT HAS BEEN UP TO CHAIR WITH ASSIST OF 1 WITH GAIT BELT AND WALKER. PATIENT HAD COMPLAINTS OF ITCHING EARLIER AND BENADRYL GIVEN WITH ADEQUATE RESULTS. PATIENT HAS COMPLAINTS OF PAIN WELL CONTROLLED WITH MEDICATION. PATIENT HAD MEETING WITH FAMILY AND DOCTOR THIS AM, CUSTODIAL IS PLANNED AT SC AND CASE MANAGEMENT IS SETTING UP. PATIENT DENIES ANY NEEDS AT THIS TIME. CALL LIGHT WITHIN REACH. BED ALARM ON.
[2019-08-30 20:51] VITALS: BP 141/59
--- NOTE | 2019-08-31 05:47 | NUR ---
PATIENT SLEPT PART OF THE NIGHT. PATIENT REMAINS IMPULSIVE AT TIMES. BEGINNING OF SHIFT PATIENT HAD RIPPED OFF THE DRESSING OF HER PICC LINE AND WAS ABOUT TO PULL IT OUT. NEW DRESSING WAS PLACED PICC LINE FLUSHES WELL AND HAS GOOD BLOOD RETURN. PATIENT WAS GIVEN PAIN MEDICINE NEEDED. PATIENT COULD POSSIBLY DC [facility] TODAY OR TOMORROW. WILL CONTINUE TO MONITOR.
[2019-08-31 07:30] VITALS: BP 123/62
--- NOTE | 2019-08-31 10:57 | NUR ---
isaiah called [facility] intake to f/u re: pt admission. left message for Karla.
[2019-08-31 15:52] VITALS: BP 135/58
--- NOTE | 2019-08-31 18:29 | NUR ---
PATIENT RESTING IN BED. PATIENT IS UP AD CARLOS IN ROOM. PATIENT HAS COMPLAINTS OF BACK PAIN, TREATED ADEQUATELY WITH MEDICATION. PATIENT'S IV PULLED OUT THIS EVENING, NURSING DIRECT SELLING COUNSELOR STARTING NEW ONE AT THIS TIME. PATIENT HAS GOOD APPETITE. PATIENT DENIES ANY NEEDS AT THIS TIME. CALL LIGHT WITHIN REACH.
--- NOTE | 2019-08-31 18:31 | NUR ---
PATIENT RESTING IN BED. PATIENT HAS HAD COMPLAINTS OF PAIN TO RIGHT FOOT AND ABDOMEN TODAY, TREATED ADEQUATELY WITH MEDICATION. PATIENT IS UP WITH ASSIST TO COMMODE. PATIENT REFUSED PHYSICAL AND OCCUPATIONAL THERAPIES TODAY. PATIENT DENIES ANY NEEDS AT THIS TIME. CALL LIGHT WITHIN REACH. BED ALARM ON.
[2019-08-31 20:15] VITALS: BP 149/59
[2019-09-01 06:01] LABS: HEMATOCRIT 33.6 % (37.0-47.0); HEMOGLOBIN 10.7 gm/dL (12.0-15.0); MCH 28.2 pg (26.0-34.0); MCHC 31.9 g/dL (28.0-37.0); MCV 88.4 fL (80.0-100.0); NUCLEATED RBCS 0 /100WBC; PLATELET COUNT* 359 thou/uL (150-400); RDW-CV 14.9 % (10.5-14.5); WBC 5.7 thou/uL (4.0-11.0)
[2019-09-01 06:07] LABS: ALBUMIN 2.9 g/dL (3.4-5.0); CALCIUM 8.5 mg/dL (8.5-10.1); CREATININE 0.8 mg/dL (0.6-1.3); MAGNESIUM 2.1 mg/dL (1.8-2.4); POTASSIUM 3.8 mmol/L (3.5-5.1); TOTAL BILIRUBIN 0.3 mg/dL (<0.1-1.0); TOTAL PROTEIN 6.4 g/dL (6.4-8.2)
[2019-09-01 06:53] LABS: ABSOLUTE BASOPHILS 0.1 thou/uL (0.0-0.2); ABSOLUTE EOSINOPHILS 0.5 thou/uL (0.0-0.7); ABSOLUTE LYMPHOCYTES 1.4 thou/uL (0.8-5.3); ABSOLUTE MONOCYTES 0.6 thou/uL (0.0-1.2); ABSOLUTE NEUTROPHILS 3.1 thou/uL (1.6-8.1); PLATELET ESTIMATE ADEQUATE
[2019-09-01 06:54] LABS: ANISOCYTOSIS Occasional
[2019-09-01 07:20] VITALS: BP 143/72
--- NOTE | 2019-09-01 07:24 | NUR ---
PT SLEPT FAIRLY WELL OVERNIGHT, HYDROCODONE GIVEN AT HS FOR CO ABD PAIN WITH GOOD RESULT. UP WITH SBA TO BSC TO VOID,NWB TO RLL. BIJU PICC SL, IV ABX GIVEN ORDERED. APHASIA, BUT ABLE TO POINT AND COMMUNICATE TO MAKE NEEDS KNOWN. CALL LITE IN EASY REACH, BED ALARM ON FOR SAFETY. ANTICIPATING DISCHARGE TODAY.
--- NOTE | 2019-09-01 10:08 | NUR ---
Pt to dc to SNF today. DASHAWN received call from Karla at [facility] accepting pt today and requested pt to admit to SNF as soon as possible today due to ensuring pt has needed iv abx ready/available and pt has to be in the SNF prior to ordering of meds. DASHAWN spoke with pt nurse and then DASHAWN arranged a ride through [employer] for pt to be picked up at Noon. DASHAWN informed Karla at [facility] of product picker time. DASHAWN called pt Reji and discussed pt dc plan today for [facility], pt in agreement with plan and said that he would inform pt dtr as well of plan. DASHAWN to fax final orders to SNF and chart to be copied for continuation of care. [facility] ph [phone] fax [phone]
[2019-09-01] MEDS ORDERED: AMITRIPTYLINE H25 M2 PO (11:12)
[2019-09-01] MEDS ORDERED: MIRALAX119 GM PO (11:16)
[2019-09-01] MEDS ORDERED: VANCOMYCIN1 GM/2002 IV (11:31)
[2019-09-01 11:32] VITALS: BP 120/51
[2019-09-01 12:29] VITALS: BP 120/51
--- NOTE | 2019-09-01 12:31 | NUR ---
PT DC TO [facility]. [facility] SENT WITH PATIENT. REPORT GIVEN TO RN AT FACILITY. FAXED UPDATED MEDICATION LIST TO FACILITY PER REQUEST. SEE ASSESSMENT AND VITALS FOR OTHER DETAILS.
[2019-09-01] MEDS ORDERED: ZYPREXA5 MG PO (13:51)
--- NOTE | 2019-09-02 19:25 | CON ---
[facility] [address] [place] [address] CONSULTATION Name: YUNIER SONI Room: [address] IN M.R.#: [id number] Admission: 08/18/19 Attend Phys: Surendra Vasquez Discharge: 09/01/19 Date of : 52 Report #: [id number] THIS REPORT FOR: //name// CC: Woo Plascencia DATE OF SERVICE: 08/30/2019 HISTORY OF PRESENT ILLNESS: This is a 69-year-old female patient who was seen by me yesterday. I discussed the patient with Dr. Plascencia, the hospitalist, today. The patient indicated that she started having some difficulty with talking about a year ago. It is not clear if she saw any physician and if any management was done. She has progressively become worse. She became more worse recently when she had cellulitis but the patient is becoming better again. REVIEW OF SYSTEMS: Positive for cellulitis now. The patient had pain and infection and she has been on antibiotics. She has a history of back surgery, hysterectomy and hypertension. She does not have a clear history of stroke. This was a relevant 14-point review of system. PAST MEDICAL HISTORY: Positive for speech difficulty. I will try to confirm the duration with the family. The patient told me it is about a year, but there is some confusion that the family thinks it is much less duration. SOCIAL HISTORY: She does not smoke. PHYSICAL EXAMINATION: Indicates it is very difficult to understand the patient. She can follow command, whenever I can understand, the response looks appropriate. Rest of the examination is also difficult, but most of the examination appeared to be secondary to her speech difficulty. Cardiac and respiratory examination is unremarkable. She has infection in the right lower extremity that makes the examination difficult. Her blood pressure is 114/48, respirations 20, pulse is 113, and temperature is 98.2. 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 Since it is a rare entity and the treatment is mostly symptomatic in conjunction with speech therapy, I will suggest that this patient go to [facility] and follow up with them because they will have more cluster of patient's and better setup to handle these patients. We will discuss that with the family. <ELECTRONICALLY SIGNED> By: Michael Spivey MD 09/02/19 [id number] Spivey MD /nt
--- NOTE | 2019-09-15 13:33 | OP ---
[address] [address] OPERATIVE REPORT Name: YUNIER SONI Room: [address] IN M.R.#: [id number] Admission: 08/18/19 Attend Phys: Surendra Vasquez Discharge: 09/01/19 Date of : 52 Report #: [id number] THIS REPORT FOR: //name// CC: Woo Plascencia DICTATED BY: Justino Burton DO DATE OF SERVICE: 08/18/2019 PREOPERATIVE DIAGNOSES: 1. Right infected external fixator of the ankle. 2. Right displaced ankle fracture. POSTOPERATIVE DIAGNOSES: 1. Right infected external fixator of the ankle. 2. Right displaced ankle fracture. SURGEON: Jesi Hogue DO. AUCTION ASSISTANT: Justino Burton DO; Chau Iqbal, MS4 OPERATIONS PERFORMED: 1. Removal of external fixator, right ankle. 2. Closed reduction and casting of right ankle. ANESTHESIA: General. ESTIMATED BLOOD LOSS: 5. SPECIMENS REMOVED: None. COMPLICATIONS: None. TOURNIQUET TIME: None. DRAINS: None. ANTIBIOTICS: 2 grams Ancef IV preoperatively. SURGICAL NOTES: Deep and superficial cultures were sent x 2 for analysis. POSTOPERATIVE PLAN: Nonweightbearing to the right lower extremity in cast. We will do serial examinations with cast when doing. Internal Medicine has been consulted. We will entertain an Infectious Disease consult pending the results of the cultures. We appreciate the Internal Medicine team recommendations for [address] [address] [place] [address] OPERATIVE REPORT Name: YUNIER SONI Room: [address] IN M.R.#: [id number] Admission: 08/18/19 Attend Phys: Surendra Vasquez Discharge: 09/01/19 Date of : 52 Report #: [id number] postoperative IV antibiotics. INDICATIONS FOR PROCEDURE: The patient is a pleasant 69-year-old female who unfortunately sustained a right ankle fracture approximately 3 weeks ago. She underwent a closed reduction with application of external fixator under the care of Dr. Robert Glasgow. The patient was discharged to [facility]. Per the patient's account, she has not been undergoing daily pin site care. Lines have been crossed and the patient unfortunately was lost to follow up until today's clinic. On examination, radiographically, the patient had a loss of reduction of her ankle fracture and the calcaneal pin had concerning signs for possible early stages of infection. Recommendation was made to the patient and her family for removal of the external fixator as well as cast application and evaluation of the skin moving forward for definitive fixation in the coming week. We discussed the alternatives, benefits, and risks of the surgery including, but not limited to continuation of nonoperative management, initiation of oral antibiotics, continuation of infection, possible need for repeat surgery in the future, dissemination of infection, postoperative DVT, pulmonary embolism, ND, and the other imponderables secondary to being taken back to the operative suite. The patient and the family expressed understanding of the aforementioned, did wish to proceed. DESCRIPTION OF PROCEDURE: The patient was met in the preoperative area where the correct extremity was marked. The patient was then taken back to the operative suite and transferred supine to a well-padded surgical table. The right lower extremity external fixator was removed. The right lower extremity was then sterilely prepped and draped in normal standard fashion. Timeout was performed, which correct patient, side, site, procedure to be performed and anticipated antibiotics in the form of 2 grams Ancef being administered were confirmed by all in participation. The procedure was then begun. Gram stain and culture swabs were taken from the lateral calcaneal pin site prior to curettage appreciated. Curettage was performed to the calcaneal pin site and separate incident was also done proximally to the tibial pin sites. Good bleeding from the bone was achieved at all four pin sites. No gross purulence or concerning signs for lala infection was encountered. Normal saline through gravity irrigation was used to cleanse and lavage the tibial and calcaneal wounds with cysto tubing, 3 liters was run through the wounds. The dressing was then applied in the form of Xeroform, 4 x 4's, and ABDs and a sterile soft roll. Radiographic evaluation of the ankle was taken showing continued displacement from the initial fracture. Despite manipulation efforts, the fracture fragments did not appear to be grossly mobile. Slight improvement was able to be made, but difficulty holding the fibular length was still appreciated. A decision was made to cast in a supination position to avoid skin compromise and breakdown as we continue to monitor before her definitive fixation later next week. The soft roll was placed around the circumferential aspect of the rest of the right lower extremity and a plaster cast was applied. Post-application radiographs were showing the acceptable alignment of the ankle for the interim. I did not [address] [address] OPERATIVE REPORT Name: YUNIER SONI Room: [facility] IN M.R.#: [id number] Admission: 08/18/19 Attend Phys: Surendra Vasquez Discharge: 09/01/19 Date of : 52 Report #: [id number] appreciate any excessive displacement and tension on the skin prior to the application. All sponge and needle counts were correct x 2. The patient was awoken from general anesthesia and taken to the PACU in stable condition. <ELECTRONICALLY SIGNED> By: Jesi Hogue DO 09/15/19 1333 [id number] Hogue DO /nt
== END 2019-09-01 12:27 | DRG 560 ==
LOC: M.ORTHSURG 12:14 → M.3W 12:16 → M.TBA 12:16 → M.3W 19:11
PROVIDERS: Family Medicine; Internal Medicine; Orthopaedic Surgery; ADMIT Internal Medicine
PROC: 0SPFX5Z Removal of External Fixation Device from Right Ankle Joint, External Approach (ICD-10-PCS; principal; 2019-08-18)
PROC: 0QSJXZZ Reposition Right Fibula, External Approach (ICD-10-PCS; 2019-08-18)
PROC: 02HV33Z Insertion of Infusion Device into Superior Vena Cava, Percutaneous Approach (ICD-10-PCS; 2019-08-28)
DX: T84.7XXA Infection and inflammatory reaction due to other internal orthopedic prosthetic devices, implants and grafts, initial encounter (principal); M80.071A Age-related osteoporosis with current pathological fracture, right ankle and foot, initial encounter for fracture; R47.01 Aphasia; L03.115 Cellulitis of right lower limb; I10 Essential (primary) hypertension; Y83.8 Other surgical procedures as the cause of abnormal reaction of the patient, or of later complication, without mention of misadventure at the time of the procedure; E66.01 Morbid (severe) obesity due to excess calories; B95.2 Enterococcus as the cause of diseases classified elsewhere; R47.1 Dysarthria and anarthria; G20 Parkinson's disease; K59.00 Constipation, unspecified; I70.0 Atherosclerosis of aorta; E03.9 Hypothyroidism, unspecified; Z90.89 Acquired absence of other organs; Z90.49 Acquired absence of other specified parts of digestive tract; Z88.8 Allergy status to other drugs, medicaments and biological substances; Z79.899 Other long term (current) drug therapy; Z90.710 Acquired absence of both cervix and uterus; Y92.89 Other specified places as the place of occurrence of the external cause; Z68.35 Body mass index [BMI] 35.0-35.9, adult; Z79.82 Long term (current) use of aspirin